=== PATIENT | male | born 1965 | race Caucasian/White ===

== ENCOUNTER → 2017-11-29 11:44 | Outpatient (CLI) | payer MEDICAID, SELFPAY ==
[2017-11-29 13:01] LABS: Free T4 (Free Thyroxine) 1.01 ng/dl (0.76-1.46); Thyroid Stimulating Hormone 1.15 uIU/ml (0.358-3.740)
[2017-12-02 02:52] LABS: Calcitonin 2.5 pg/mL (0.0-8.4)
== END ==
PROVIDERS: Family Provider Internal Medicine Adolescent Medicine; PCP Internal Medicine Adolescent Medicine; Visit Provider Otolaryngology
DX: Z80.8 Family history of malignant neoplasm of other organs or systems (principal)
CPT/HCPCS: 82308; 84439; 84443

== ENCOUNTER → 2017-12-05 10:47 | Outpatient (CLI) | payer MEDICAID, SELFPAY ==
--- NOTE | 2017-12-05 11:02 | US_ITS ---
US thyroid HISTORY: Dysphasia, feels like something is stuck in his throat ITS.REASON: FAMILY H/O THYROID CA ORDERING PHYSICIAN: Pete Valladares MD PATIENT AGE: 52 years COMPARISON: None FINDINGS: Right lobe: 4.5 x 1.4 x 2.9 cm 6 mm cyst in upper pole. 3 mm cyst in lower pole and an additional 3 mm cyst in lower pole Left lobe: 4.4 x 1.6 x 1.9 cm. 7 mm cyst upper pole 5 mm cyst lower pole Isthmus: Slightly prominent at 4 mm IMPRESSION: Mildly enlarged thyroid gland. Bilateral cystic lesions within the thyroid gland
== END ==
PROVIDERS: Family Provider Internal Medicine Adolescent Medicine; PCP Internal Medicine Adolescent Medicine; Visit Provider Otolaryngology
DX: Z80.8 Family history of malignant neoplasm of other organs or systems (principal)
CPT/HCPCS: 76536

== ENCOUNTER → 2017-12-21 08:43 | Outpatient (CLI) | payer MEDICAID, SELFPAY ==
--- NOTE | 2017-12-21 08:46 | FL_ITS ---
EXAM: Barium swallow/esophagram. INDICATION: ORDERING PHYSICIAN: Pete Valladares MD PATIENT AGE: 52 years COMPARISON: None TECHNIQUE: In the upright position the patient was observed to swallow barium in both the AP and lateral view. The cervical esophagus was examined under fluoroscopy with images obtained. The patient was then placed prone in the right anterior oblique position and was observed to swallow barium with Valsalva technique . FLUOROSCOPY TIME: 58 seconds FINDINGS: There was no evidence of aspiration. There was normal peristalsis. No filling defects or mucosal abnormalities. No masses or strictures. There is a small sliding hiatal hernia with a nonconstricting Schatzki's ring. Reflux was not demonstrated during exam. Esophagus is midline. IMPRESSION: Small sliding hiatal hernia with nonconstricting Schatzki's region
== END ==
PROVIDERS: Family Provider Internal Medicine Adolescent Medicine; PCP Internal Medicine Adolescent Medicine; Visit Provider Otolaryngology
DX: R13.10 Dysphagia, unspecified (principal)
CPT/HCPCS: 74220

== ENCOUNTER → 2018-01-10 14:57 | Outpatient (CLI) | payer MEDICAID, SELFPAY ==
--- NOTE | 2018-01-10 14:59 | CT_ITS ---
CT sinus wo con CLINICAL INDICATION: Chronic maxillary sinusitis, elongated uvula, acquired deviated nasal septum ITS.REASON: dysphagia ORDERING PHYSICIAN: Pete Valladares MD PATIENT AGE: 52 years COMPARISON: None TECHNIQUE:Axial, sagittal, and coronal images are generated and reviewed without contrast FINDINGS: Mild mucosal thickening involves the ethmoid sinuses. No sinus air-fluid level or sinus mass. The frontal sinuses are hypoplastic. There is severe narrowing of the left nasal canal secondary to leftward nasal septal deviation of the bony septum along with a prominent nasal septal spur which projects toward the left. The spur measures approximately 5 mm. The ostiomeatal complexes are patent. No mastoid effusion.. The orbits have an unremarkable appearance. IMPRESSION: 1. Severe narrowing of the left nasal canal secondary to leftward nasal septal deviation and a prominent septal spur 2. Otherwise negative CT of the paranasal sinuses
== END ==
PROVIDERS: Family Provider Internal Medicine Adolescent Medicine; PCP Internal Medicine Adolescent Medicine; Visit Provider Otolaryngology
DX: J32.0 Chronic maxillary sinusitis (principal); K13.79 Other lesions of oral mucosa; J34.2 Deviated nasal septum
CPT/HCPCS: 70486

== ENCOUNTER → 2018-01-25 11:55 | Outpatient (CLI) | payer MEDICAID, SELFPAY ==
[2018-01-25 12:13] LABS: Basophils % 0.3 % (0.1-2.0); Eosinophils # 0.2 K/mm3 (0.0-0.4); Hematocrit 41.5 % (42.0-52.0); Hemoglobin 13.9 g/dL (14.1-18.0); Lymphocytes # 2.5 K/mm3 (0.7-4.5); Lymphocytes % 32.4 K/mm3 (10-50); Mean Corpuscular HGB Conc 33.4 g/dL (31.8-35.4); Mean Corpuscular Hemoglobin 31.8 pg (27.0-31.2); Mean Corpuscular Volume 95.2 fl (80-94); Mean Platelet Volume 7.2 fl (7.4-10.4); Monocytes # 0.5 K/mm3 (0.1-1.0); Monocytes % 6.1 % (1.7-9.3); Neutrophils # 4.6 K/mm3 (1.8-7.8); Neutrophils % 59.2 % (37.0-80.0); Platelet Count 226 K/mm3 (142-424); Red Blood Count 4.36 M/mm3 (4.60-6.20); Red Cell Distribution Width 12.7 % (11.5-17.5); White Blood Count 7.8 K/mm3 (4.8-10.8)
[2018-01-25 12:26] LABS: Anion Gap 11.8 mEq/L (5-15); Blood Urea Nitrogen 15 mg/dL (7-18); Carbon Dioxide 29 mmol/L (21.0-32.0); Chloride 104 mmol/L (98-107); Creatinine,Serum 1.05 mg/dL (0.70-1.30); Estimated Glomerular Filt Rate 74 ml/min (>60); GFR (African American) 90 ML/MIN (>60); Glucose 87 mg/dL (74-106); Potassium 3.8 mmoL/L (3.5-5.1); Sodium 141 mmol/L (136-145)
== END ==
PROVIDERS: Visit Provider Otolaryngology
DX: Z01.818 Encounter for other preprocedural examination (principal)
CPT/HCPCS: 36415; 80048; 85025; 93005

== ENCOUNTER → 2018-01-31 06:49 | Outpatient (CLI) | payer MEDICAID, SELFPAY ==
--- NOTE | 2018-01-31 06:52 | NM_ITS ---
History and Indications: Hypertension, hyperlipidemia, family history, abnormal EKG. Procedure: Patient received a 0.4 mg of Lexiscan, resting heart rate was 65 bpm resting blood pressure 156/89, with Lexiscan maximum heart rate achieved was 81 bpm which is less than 85% of the maximum predicted heart rate and a blood pressure was 150/69. With Lexiscan patient complained of shortness of breath and headache. Electrocardiogram: Resting electrocardiogram showed sinus rhythm, with Lexiscan occasional premature ventricular complex seen, less than 1.[address] segment depression noted from the baseline EKG. The EKG portion of the Lexiscan Myoview is nondiagnostic. Cardiac stress and resting SPECT images: Cardiac stress and rest SPECT images were obtained using technetium 99 Myoview 10.9 mCi at rest and 32.3 mCi at stress, gated SPECT further analysis of segmental wall motion and calculation of the ejection fraction also done. Cardiac stress and rest SPECT images show decreased tracer activity in the inferior and posterobasal wall which improves on the resting images suggestive of reversible ischemia, computer derived ejection fraction is 43% with mild inferior wall hypokinesis, right ventricle is normal size and contractility. Conclusion: 1. The EKG portion of the Lexiscan Myoview is nondiagnostic. 2. Scintigraphic evidence of mild reversible ischemia involving the inferior and posterobasal wall, computer derived ejection fraction is 43% with segmental wall motion abnormality described above, right ventricle is normal size and contractility. 3. Abnormal Lexiscan Myoview study
--- NOTE | 2018-01-31 06:52 | CA_ITS ---
PROCEDURE: 2-D M-mode and color Doppler study INDICATIONS FOR THE TEST: Chest pain COPD Heart Murmur Tobacco Smoking Palpitations Fatigue Syncope Edema HypertensionXDiabetes Mellitus Rheumatic Fever SOBXDOE Obesity HyperlipidemiaX Family History HD Additional History H/O AAA PATIENT INFORMATION HEIGHT: 75 WEIGHT:261 GENDER: Male B/P:142/77 2-D/M-MODE INTERPRETATION: 2-D MEASUREMENTS OBSERVED VALUES IN CMS Right Ventricular Dimension (RVDd) 3.0 Interventricular Septum (Thickness)(IVsd) .9 Left Ventricular Internal Dimensions(LVIDd) 5.6 Left Ventricular Posterior Wall (Thickness)(LVPWd) 1.1 Aortic Root 3.5 Aortic Cusp Separation 1.8 Left Atrial Dimensions (LAD) 3.7 2D 1. Left atrium is qualitatively mildly enlarged, left ventricle is normal size, mild concentric left ventricular hypertrophy, visually estimated ejection fraction 55% with no obvious regional wall motion abnormality. 2. The right atrium is normal size, right ventricle is mildly enlarged with normal contractility. 3. The aortic valve is minimally thickened and fibrosed. 4. The mitral and tricuspid valve leaflets are minimally thickened. 5. The pulmonic valve is poorly visualized. 6. No significant pericardial effusion noted. DOPPLER INTERROGATION: Doppler interrogation of the aortic, mitral and tricuspid valvular presence of mild mitral and tricuspid regurgitation, tricuspid and jet velocity insufficient for calculation of the right ventricular systolic pressure, grade 1 diastolic dysfunction seen with tissue Doppler evidence of raised left atrial pressure. CONCLUSION: 1. Qualitatively mildly enlarged left atrium, normal left ventricular size, mild concentric left ventricular hypertrophy, visually estimated ejection fraction 55% with no obvious regional wall motion abnormality, grade 1 diastolic dysfunction seen with tissue Doppler evidence of raised left atrial pressure. 2. Mildly enlarged right ventricle with normal contractility. 3. Mild mitral and tricuspid regurgitation 4. No significant pericardial effusion noted.
--- NOTE | 2018-01-31 07:52 | HMH.ITSHM ---
AMLODIPINE VISOPROPOLOL ISOSORBIDE OMEPRAZOLE ASA PRAVASTATIN FOLIC ACID LOPIDOGRIL
== END ==
PROVIDERS: Family Provider Internal Medicine Adolescent Medicine; PCP Internal Medicine Adolescent Medicine; Visit Provider Internal Medicine
DX: Z82.49 Family history of ischemic heart disease and other diseases of the circulatory system (principal); Z01.818 Encounter for other preprocedural examination; I71.4 Abdominal aortic aneurysm, without rupture; I10 Essential (primary) hypertension; K21.9 Gastro-esophageal reflux disease without esophagitis; E78.4 Other hyperlipidemia; R06.00 Dyspnea, unspecified
CPT/HCPCS: 78452; 93017; 93306; A9502; J2785

== ENCOUNTER → 2018-10-28 06:07 | Outpatient (CLI) | payer MEDICAID, SELFPAY ==
--- NOTE | 2018-10-28 06:09 | NM_ITS ---
History and Indications: Coronary artery disease, hypertension, hyperlipidemia, family history, shortness of breath and fatigue Procedure: Patient received a 0.4 mg of intravenous Lexiscan, resting heart rate was 65 bpm, resting blood pressure 131/72, with intravenous Lexiscan maximum heart rate achieved was 78 bpm is less than 85% of the maximum predicted heart rate and a blood pressure was 114/64. With Lexiscan patient complained of nausea. Electrocardiogram: Resting electrocardiogram showed sinus rhythm nonspecific ST-T changes, with Lexiscan there is less than 1.[address] segment depression noted from the baseline EKG. The EKG portion of the Lexiscan Myoview is nondiagnostic. Cardiac stress and resting SPECT images: Cardiac stress and resting SPECT images were obtained using technetium 99 Myoview 30.8 mCi stress and 10.6 mCi at rest. Gated SPECT further analysis of segmental wall motion and calculation of the ejection fraction also done. Cardiac stress and resting SPECT images show decreased tracer activity in the inferior wall which improves on the resting images suggestive of reversible ischemia. Computer derived ejection fraction is 51% with no regional wall motion abnormality, right ventricle is normal size and contractility. Conclusion: 1. The EKG portion of the Lexiscan Myoview is nondiagnostic. 2. Scintigraphic evidence of mild reversible ischemia involving the inferior wall, there are ejection fraction is 51% with no regional wall motion abnormality, right ventricle is normal size and contractility. 3. Abnormal Lexiscan Myoview study.
--- NOTE | 2018-10-28 07:07 | HMH.ITSHM ---
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 []AMLODIPINE BISOPROLOL ISOSORBIDE OMEPRAZOLE ASA ATORVASTATIN FOLIC ACID CLOPIDOGREL MONTELUKAST VENLAFAXINE
== END ==
PROVIDERS: PCP Internal Medicine Adolescent Medicine; Visit Provider Internal Medicine
DX: I11.9 Hypertensive heart disease without heart failure (principal); R06.00 Dyspnea, unspecified; I25.10 Atherosclerotic heart disease of native coronary artery without angina pectoris
CPT/HCPCS: 78452; 93017; A9502; J2785

== ENCOUNTER → 2018-11-19 14:38 | Outpatient (CLI) | payer MEDICAID, SELFPAY | PROVIDERS: PCP Internal Medicine Adolescent Medicine; Visit Provider Internal Medicine | DX: R40.0 Somnolence (principal); I11.9 Hypertensive heart disease without heart failure; I25.10 Atherosclerotic heart disease of native coronary artery without angina pectoris; R06.00 Dyspnea, unspecified | CPT/HCPCS: 95806 ==

== ENCOUNTER → 2018-11-20 06:57 | Outpatient (CLI) | payer MEDICAID, SELFPAY ==
[2018-11-20 08:09] LABS: Alanine Aminotransferase 87 U/L (12-78); Albumin Level 3.7 gm/dL (3.4-5.0); Alkaline Phosphatase 82 U/L (46-116); Aspartate Amino Transferase 42 U/L (15-37); Bilirubin,Direct 0.2 mg/dL (0.0-0.2); Bilirubin,Indirect 0.4 mg/dL (0.0-0.9); Bilirubin,Total 0.6 mg/dL (0.2-1.0); Chol/HDL Ratio 5.8 (1-3.5); Cholesterol 146 mg/dL (140-200); HDL Cholesterol 25 mg/dL (27-67); LDL Cholesterol 63 mg/dL (0-130); Total Protein,Serum 7.3 gm/dL (6.4-8.2); Triglycerides 289 mg/dL (30-200); VLDL Cholesterol 58 mg/dL (0-40)
== END ==
PROVIDERS: Visit Provider Internal Medicine
DX: I71.4 Abdominal aortic aneurysm, without rupture (principal); R06.00 Dyspnea, unspecified; E78.5 Hyperlipidemia, unspecified; I10 Essential (primary) hypertension; I25.10 Atherosclerotic heart disease of native coronary artery without angina pectoris; R09.89 Other specified symptoms and signs involving the circulatory and respiratory systems
CPT/HCPCS: 36415; 80061; 80076

== ENCOUNTER → 2018-12-20 07:33 | Outpatient (CLI) | payer MEDICAID, SELFPAY ==
--- NOTE | 2018-12-20 07:34 | CI_ITS ---
Cerebrovascular Exam Indications: 785.9 Bruit. 433.10 Occlusion/stenosis of carotid artery without cerebral infarction. IMPRESSIONS 1. The bilateral vertebral arteries are patent with normal antegrade flow. 2. Study suggests 50-69%(upper end of scale)stenosis involving the right internal carotid artery. 3. Study suggests 20-49%(upper end of scale)stenosis involving the left internal carotid artery. History: Coronary artery disease. Risk factors: Hypertension. Hyperlipidemia. Carotid duplex study. Complete study and Doppler flow study including spectral analysis, color and roberson scale imaging. Height: Height: 190.5cm. Height: 75in. Weight: Weight: 125.2kg. Weight: 275.4lb. Body mass index: BMI: 34.5kg/m^2. Body surface area: BSA: 2.61m^2. Location: Vascular laboratory. Patient status: Outpatient. Tables: Arterial flow: + +--------+--------+ Location V sys V ed + +--------+--------+ Right CCA - proximal 76.2cm/s 18.9cm/s + +--------+--------+ Right CCA - distal 77cm/s 14.9cm/s + +--------+--------+ Right ECA 86.4cm/s -------- + +--------+--------+ Right ICA - proximal 173cm/s 53.4cm/s + +--------+--------+ Right ICA - mid 209cm/s 63.8cm/s + +--------+--------+ Right ICA - distal 78.6cm/s 22.6cm/s + +--------+--------+ Right vertebral 18.9cm/s -------- + +--------+--------+ Left CCA - proximal 96.4cm/s 16.1cm/s + +--------+--------+ Left CCA - distal 70.5cm/s 21cm/s + +--------+--------+ Left ECA 83.8cm/s -------- + +--------+--------+ Left ICA - proximal 110cm/s 27.9cm/s + +--------+--------+ Left ICA - mid 116cm/s 34.9cm/s + +--------+--------+ Left ICA - distal 88.5cm/s 25.5cm/s + +--------+--------+ Left vertebral 66.3cm/s -------- + +--------+--------+ Velocity ratios: + + + + + + Right, V sys Right, V ed Left, V sys Left, V ed + + + + + + Max ICA/dist CCA 2.71 4.28 1.65 1.66 + + + + + + (Report amended ) Electronically signed by: Alexis Lopez [id number]
== END ==
PROVIDERS: PCP Internal Medicine Adolescent Medicine; Visit Provider Internal Medicine
DX: R09.89 Other specified symptoms and signs involving the circulatory and respiratory systems (principal); I71.4 Abdominal aortic aneurysm, without rupture; R06.00 Dyspnea, unspecified; I25.10 Atherosclerotic heart disease of native coronary artery without angina pectoris; E78.5 Hyperlipidemia, unspecified; I10 Essential (primary) hypertension
CPT/HCPCS: 93880

== ENCOUNTER → 2019-02-06 10:40 | Outpatient (CLI) | payer MEDICAID, SELFPAY | PROVIDERS: PCP Internal Medicine Adolescent Medicine; Visit Provider Specialist | DX: G47.33 Obstructive sleep apnea (adult) (pediatric) (principal) | CPT/HCPCS: 94762 ==

== ENCOUNTER → 2019-02-26 20:27 | Outpatient (CLI) | payer MEDICAID, SELFPAY | PROVIDERS: PCP Internal Medicine Adolescent Medicine; Visit Provider Specialist | DX: G47.33 Obstructive sleep apnea (adult) (pediatric) (principal) | CPT/HCPCS: 95811 ==

== ENCOUNTER → 2019-11-21 14:06 | Outpatient (CLI) | payer BC, SELFPAY ==
--- NOTE | 2019-11-21 14:07 | CA_ITS ---
APPROVED REPORT Dive Supervisor: Minnie Garcia RVT Laterality: Bilateral Study Quality: Good Indications: Carotid stenosis Risk Factors Hypertension: Smoking Doppler Spectral Velocity Analysis ECA (R) 100.80/10.90 cm/s ECA (L) 105.40/11.00 cm/s dICA (R) 66.40/15.20 cm/s dICA (L) 122.30/32.40 cm/s Rachel (R) 175.40/34.00 cm/s Rachel (L) 118.90/28.30 cm/s pICA (R) 227.50/55.50 cm/s pICA (L) 131.40/26.60 cm/s dCCA (R) 79.00/14.10 cm/s dCCA (L) 61.60/14.10 cm/s pCCA (R) 89.30/12.80 cm/s pCCA (L) 121.80/20.70 cm/s Vert (R) 40.20/10.90 cm/s Vert (L) 33.00/11.00 cm/s ICA/CCA 2.88 ICA/CCA 2.13 Findings Study suggests 50-69% stenosis(upper end of scale) of the right internal cartoid artery unchanged from the 12/20/18 study. Study suggests 20-49% stenosis (upper end of scale) of the left internal cartoid artery unchanged from the 12/20/18 study. Antegrade flow seen bilateral vertebral arteries. Conclusion Study suggests 50-69% stenosis(upper end of scale) of the right internal cartoid artery unchanged from the 12/20/18 study. Study suggests 20-49% stenosis (upper end of scale) of the left internal cartoid artery unchanged from the 12/20/18 study. Antegrade flow seen bilateral vertebral arteries. Electronically signed by : Jeff Rivas, 11/21/2019 15:35:19
== END ==
PROVIDERS: PCP Internal Medicine Adolescent Medicine; Visit Provider Nurse Practitioner Family
DX: I65.23 Occlusion and stenosis of bilateral carotid arteries (principal)
CPT/HCPCS: 93880

== ENCOUNTER → 2019-12-06 07:55 | Outpatient (CLI) | payer BC, SELFPAY ==
[2019-12-06 08:20] LABS: Basophils % 0.4 % (0.1-2.0); Eosinophils # 0.2 K/mm3 (0.0-0.4); Hematocrit 43.5 % (42.0-52.0); Hemoglobin 14.1 g/dL (14.1-18.0); Lymphocytes # 2.4 K/mm3 (0.7-4.5); Lymphocytes % 31.5 % (10-50); Mean Corpuscular HGB Conc 32.4 g/dL (31.8-35.4); Mean Corpuscular Hemoglobin 31.5 pg (27.0-31.2); Mean Corpuscular Volume 97.1 fl (80-94); Mean Platelet Volume 7.2 fl (7.4-10.4); Monocytes # 0.5 K/mm3 (0.1-1.0); Monocytes % 7.2 % (1.7-9.3); Neutrophils # 4.3 K/mm3 (1.8-7.8); Neutrophils % 57.9 % (37.0-80.0); Platelet Count 281 K/mm3 (142-424); Red Blood Count 4.48 M/mm3 (4.60-6.20); White Blood Count 7.5 K/mm3 (4.8-10.8)
[2019-12-06 10:30] LABS: Alanine Aminotransferase 78 U/L (12-78); Albumin Level 3.7 gm/dL (3.4-5.0); Albumin/Globulin Ratio 1.2 (1.1-1.8); Alkaline Phosphatase 63 U/L (46-116); Anion Gap 13.9 mEq/L (5-15); Aspartate Amino Transferase 52 U/L (15-37); Bilirubin,Total 0.4 mg/dL (0.2-1.0); Blood Urea Nitrogen 19 mg/dL (7-18); Calcium 8.7 mg/dL (8.5-10.1); Carbon Dioxide 29 mmol/L (21.0-32.0); Chloride 108 mmol/L (98-107); Cholesterol 136 mg/dL (140-200); Creatinine,Serum 1.16 mg/dL (0.70-1.30); Estimated Glomerular Filt Rate 66 ml/min (>60); GFR (African American) 80 ML/MIN (>60); Glucose 107 mg/dL (74-106); HDL Cholesterol 27 mg/dL (27-67); LDL Cholesterol 79 mg/dL (0-130); Potassium 3.9 mmoL/L (3.5-5.1); Sodium 147 mmol/L (136-145); Total Protein,Serum 6.7 gm/dL (6.4-8.2); Triglycerides 151 mg/dL (30-200); VLDL Cholesterol 30 mg/dL (0-40)
== END ==
PROVIDERS: Visit Provider Internal Medicine Adolescent Medicine
DX: I25.10 Atherosclerotic heart disease of native coronary artery without angina pectoris (principal); K21.9 Gastro-esophageal reflux disease without esophagitis
CPT/HCPCS: 36415; 80053; 80061; 85025

== ENCOUNTER → 2020-06-25 15:22 | Outpatient (CLI) | payer BC, SELFPAY ==
--- NOTE | 2020-06-25 15:34 | CT_ITS ---
PROCEDURE: CT ABDOMEN PELVIS WO/W CON CLINICAL INDICATION: H/O AAA,GASTROINTESTINAL HEMORRHAGE Blood in stool, history of abdominal aortic aneurysm COMPARISON: CT CTAC CTA-CHEST from 09/23/2017 TECHNIQUE: IV Contrast: 75ML OPTIRAY 350 Oral Contrast None Axial images obtained with sagittal and coronal reformats. All CT scans at the facility use one or more dose reduction, viz: automated exposure control, ma/kV adjustment per patient size (including targeted exams where dose is matched to indication, i.e. head), or iterative reconstruction technique. FINDINGS: LOWER THORAX: No acute finding ABDOMEN & PELVIS: There is diffuse fatty liver infiltration. 8 mm hypodensity is present in the left hepatic lobe segment 2. The the gallbladder, spleen adrenal glands, pancreas, and kidneys have an unremarkable appearance. No intestinal obstruction or free air. There is a small umbilical hernia which contains. No evidence of appendicitis or diverticulitis. There has been prior aortoiliac stent graft placed. There is also a stent within superior mesenteric artery and there are bilateral renal artery stents there is dilatation of the [place] abdominal aorta measuring 4.7 cm in AP dimension and 4.1 cm transverse. No evidence endo graft leak however, the study is not performed as the CT angiogram. No evidence of acute retroperitoneal hemorrhage. No acute bony anomalies. IMPRESSION: 1. No acute abdominal or pelvic findings. 2. Prior aortoiliac stent graft placement. Dictated by: Alexis Lopez MD 06/26/2020 07:29 Alexis Lopez MD in [place] 06/26/2020 07:29
[2020-06-25 15:39] LABS: Basophils % 0.4 % (0.1-2.0); Eosinophils # 0.3 K/mm3 (0.0-0.4); Eosinophils % 3.4 % (0.1-12.0); Hematocrit 38.3 % (42.0-52.0); Hemoglobin 13.8 g/dL (14.1-18.0); Lymphocytes # 2.9 K/mm3 (0.7-4.5); Lymphocytes % 33.2 % (10-50); Mean Corpuscular Hemoglobin 34.2 pg (27.0-31.2); Mean Corpuscular Volume 94.9 fl (80-94); Mean Platelet Volume 7.6 fl (7.4-10.4); Monocytes # 0.6 K/mm3 (0.1-1.0); Monocytes % 6.7 % (1.7-9.3); Neutrophils # 4.9 K/mm3 (1.8-7.8); Neutrophils % 56.4 % (37.0-80.0); Platelet Count 217 K/mm3 (142-424); Red Blood Count 4.03 M/mm3 (4.60-6.20); Red Cell Distribution Width 13.3 % (11.5-17.5); White Blood Count 8.6 K/mm3 (4.8-10.8)
[2020-06-25 15:50] LABS: INR 1.02 (0.9-1.1); Prothrombin Time 10.5 seconds (9.4-11.8)
[2020-06-25 16:29] LABS: Alanine Aminotransferase 74 U/L (12-78); Albumin Level 4.2 g/dl (3.5-5.0); Albumin/Globulin Ratio 1.6 (1.1-1.8); Alkaline Phosphatase 63 U/L (38-126); Anion Gap 14.7 mEq/L (5-15); Aspartate Amino Transferase 62 U/L (17-59); Bilirubin,Total 0.4 mg/dl (0.2-1.3); Blood Urea Nitrogen 17 mg/dl (9-20); Calcium 9.3 mg/dl (8.4-10.2); Carbon Dioxide 27 mmol/L (22.0-30.0); Chloride 102 mmol/L (98-107); Estimated Glomerular Filt Rate 78 ml/min (>60); GFR (African American) 94 ML/MIN (>60); Globulin 2.7 g/dL (1.3-3.2); Glucose 81 mg/dl (74-100); Potassium 3.7 mmoL/L (3.5-5.1); Sodium 140 mmol/L (136-145); Total Protein,Serum 6.9 g/dl (6.3-8.2)
== END ==
PROVIDERS: Visit Provider Internal Medicine Adolescent Medicine
DX: K92.2 Gastrointestinal hemorrhage, unspecified (principal); Z86.79 Personal history of other diseases of the circulatory system
CPT/HCPCS: 36415; 74178; 80053; 85025; 85610; Q9967

== ENCOUNTER → 2020-07-09 11:04 | Outpatient (CLI) | payer BC, SELFPAY ==
--- NOTE | 2020-07-09 11:10 | CA_ITS ---
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: HOME Laterality: Bilateral Study Quality: Good Indications: carotid bruit Doppler Spectral Velocity Analysis dICA (R) 102.30/26.80 cm/s dICA (L) 94.10/19.20 cm/s Rachel (R) 219.30/63.40 cm/s Rachel (L) 116.50/22.40 cm/s pICA (R) 143.00/39.70 cm/s pICA (L) 111.60/25.10 cm/s dCCA (R) 132.80/21.00 cm/s dCCA (L) 76.60/17.80 cm/s pCCA (R) 368.20/90.60 cm/s pCCA (L) 93.00/15.70 cm/s Vert (R) 22.90/2.50 cm/s Vert (L) 37.70/9.30 cm/s ICA/CCA 1.70 ICA/CCA 1.50 Findings Duplex evaluation demonstrates stenosis of the right proximal internal carotid artery in the range of 50-69%(UPPER END OF SCALE) with PSV =140 cm/sec, EDV <100 cm/sec, and IC/CC Ratio <4.0.Duplex evaluation demonstrates stenosis of the left proximal internal carotid artery in the range of 20-49%(UPPER END OF SCALE) with PSV <140 cm/sec, EDV <100 cm/sec, and IC/CC Ratio <4.0.Antegrade flow seen bilateral vertebral arteries.No significant change from study 11/21/19 Conclusion Duplex evaluation demonstrates stenosis of the right proximal internal carotid artery in the range of 50-69%(UPPER END OF SCALE) with PSV =140 cm/sec, EDV <100 cm/sec, and IC/CC Ratio <4.0.Duplex evaluation demonstrates stenosis of the left proximal internal carotid artery in the range of 20-49%(UPPER END OF SCALE) with PSV <140 cm/sec, EDV <100 cm/sec, and IC/CC Ratio <4.0.Antegrade flow seen bilateral vertebral arteries.No significant change from study 11/21/19 Electronically signed by : Alexis Lopez MD 07/09/2020 15:13:42
== END ==
PROVIDERS: PCP Internal Medicine Adolescent Medicine; Visit Provider Internal Medicine Cardiovascular Disease
DX: I65.23 Occlusion and stenosis of bilateral carotid arteries (principal); E78.5 Hyperlipidemia, unspecified; I10 Essential (primary) hypertension; I25.10 Atherosclerotic heart disease of native coronary artery without angina pectoris; I71.4 Abdominal aortic aneurysm, without rupture
CPT/HCPCS: 93880

== ENCOUNTER → 2020-07-12 15:24 | Outpatient (CLI) | payer BC, SELFPAY ==
[2020-07-12 17:20] LABS: Coronavirus 19 IgG Antibody Negative (Negative); Coronavirus 19 IgM Antibody Negative (Negative)
== END ==
PROVIDERS: Visit Provider Surgery
DX: Z01.818 Encounter for other preprocedural examination (principal); Z12.11 Encounter for screening for malignant neoplasm of colon
CPT/HCPCS: 36415; 86328

== ENCOUNTER 2020-07-13 08:20 | Day surgery (SDC) | payer BC, SELFPAY ==
[2020-07-12 10:31] VITALS: BMI 36.6
[2020-07-13 08:34] VITALS: BP 161/84; PULSE 61; RESP 18; TEMP 36.4; O2SAT 99
--- NOTE | 2020-07-13 09:55 | HMH.ANESCL ---
[facility] Anesthesia Checklist - Patient Identification Patient Identification: Arm Band, Verbal (Name & ) - Structural Data Admitted From: Home Planned Operative Procedure/s: Colonoscopy Consent for Planned Operative Procedure(s) Verified: Yes Verified Documents: Surgical Consent, History and Physical - NPO Status Verified Time NPO: 00:00 - Chart Verification Results Verified: CBC, BMP, PT, PTT, INR - Additional verifications Anesthesia Reactions: No - Airway Assessment C-Spine Mobility Assessed: Yes TMJ Mobility Assessed: Yes Dentition: Good Dentition - Neurological Assessment Level of Consciousness: Awake, Alert, Appropriate, Follows Commands Hx Seizures: No Numbness or tingling in extremities: No - Anesthesia Plan Anesthesia Risk discussed: Yes Anesthesia Plan: Verified ASA Class: III Anesthesia Type: MAC [facility] History I have reviewed the patient's past medical history: Yes Medical History: Reports:: Aneurysm (AAA repaired endovascularly), Coronary Artery Disease, Gastroesophageal Reflux Disease(GERD), Hyperlipidemia, Hypertension Denies:: Cancer, Diabetes Mellitus Type 1, Diabetes Mellitus Type 2, Internal Pacemaker, MRSA, Seizures *Have you ever received a pneumonia vaccine?: No *Have you received a flu vaccine this season?: No Comment:: Obesity, angina Anesthesia experience/problems:: No prior complications Other Surgeries: Yes: Cardiac Catheterization, Colonoscopy, Coronary Stent, Hernia Repair. No: Pacemaker Amputation: No Fractures: No - *Social History Last grade of school completed: GED Smoking Status: Never smoker Tobacco Type: cigarettes Alcohol Intake: current Alcohol Intake Frequency:: 0-2 drinks per day Substance Use Type: denies use *Occupational Status:: employed Housing: house Household Members: spouse *Travel in the last 8 weeks: Inside the [facility] Family Hx:: No significant family history
[2020-07-13 10:02] VITALS: O2SAT 99
[2020-07-13 10:50] VITALS: BP 102/55; PULSE 59; RESP 16; TEMP 36.5; O2SAT 90
--- NOTE | 2020-07-13 10:50 | HMH.SCOPE ---
- Procedure: Date: 07/13/20 Patient Date of :: 1965 Procedure Performed:: Total colonoscopy to terminal ileum with polypectomy by snare and biopsy forceps Indications:: Patient is a 55-year-old male who resides in [place] referred by Dr. Piero Garcia for colonoscopy. Patient does state that he had a history of rectal bleeding in 2010 and underwent colonoscopy at that time but it was unremarkable. He did have a CT scan at that time as well which revealed apparently abdominal aortic aneurysm which has been repaired by endograft. Recently he has been passing appreciable blood per rectum according to him. It is not daily but occurs sporadically and when it does occur it is appreciable. He has no pain. He did undergo CT scan. Of note, patient is on Plavix due to his history of endovascular stenting. He also does see cardiology at this institution. Performing Provider:: Mook Denny MD Referring Provider:: Piero Garcia MD Sedation:: MAC sedation Procedure:: Patient was taken to endoscopy procedure room. He was positioned in a lateral decubitus position. Adequate intravenous sedation was achieved with anesthesia titration of propofol which did require an appreciable amount of propofol before achievement of adequate anesthesia. Variable stiffness Olympus colonoscope was then inserted via the anus. It was advanced to the cecum with some minor difficulty due to redundancy and floppiness of the sigmoid colon. Ileocecal valve and appendiceal orifice were clearly identified. Colonoscope was advanced a short distance into the terminal ileum which appeared grossly normal. Colonoscope was slowly withdrawn through the colon with careful surveillance. In the proximal transverse colon there was a sessile polyp measuring 8 to 10 mm removed with cold cutting snare. In the distal sigmoid colon there were a couple of hyperplastic appearing polyps removed with cold biopsy forceps. Hyperplastic appearing rectosigmoid polyp was biopsied with cold biopsy forceps. Retroflexion revealed minor internal hemorrhoids. Colonoscope was withdrawn. Please note that there were some rare sigmoid diverticuli noted. Findings:: Proximal transverse colon polyp, 8 to 10 mm, removed with cold cutting snare Hyperplastic distal sigmoid polyps x2 removed with cold biopsy forceps Rectosigmoid hyperplastic appearing polyp removed with cold biopsy forceps Rare sigmoid diverticuli Minor internal hemorrhoids Recommendations:: Bleeding may have been from diverticuli or hemorrhoids. Would advocate repeat colonoscopy 2 to 3 years pending the pathology of the proximal transverse colon polyp. Complications:: None immediately apparent Estimated blood obtained (mL): 2
[2020-07-13 11:00] VITALS: BP 112/63; PULSE 57; RESP 18; TEMP 36.5; O2SAT 93
[2020-07-13 11:10] VITALS: BP 139/68; PULSE 55; RESP 18; TEMP 36.5; O2SAT 93
[2020-07-13 11:22] VITALS: BP 168/84; PULSE 56; RESP 18; TEMP 36.5; O2SAT 93
== END 2020-07-13 11:22 | disposition home or self-care (01) ==
LOC: OUTP 08:22
PROVIDERS: PCP Internal Medicine Adolescent Medicine; Visit Provider Surgery
PROC: 0DJD8ZZ Inspection of Lower Intestinal Tract, Via Natural or Artificial Opening Endoscopic (ICD-10-PCS; CPT 45385; principal; 2020-07-13 09:30)
DX: Z12.11 Encounter for screening for malignant neoplasm of colon (principal); K64.9 Unspecified hemorrhoids; Z87.19 Personal history of other diseases of the digestive system; K63.5 Polyp of colon; K57.30 Diverticulosis of large intestine without perforation or abscess without bleeding; Z79.01 Long term (current) use of anticoagulants; I25.10 Atherosclerotic heart disease of native coronary artery without angina pectoris; E78.5 Hyperlipidemia, unspecified; I10 Essential (primary) hypertension; K21.9 Gastro-esophageal reflux disease without esophagitis; Z86.79 Personal history of other diseases of the circulatory system; Z88.1 Allergy status to other antibiotic agents
CPT/HCPCS: 45385; 45380

== ENCOUNTER 2020-10-09 16:24 | Emergency (ER) | payer BC, SELFPAY ==
[2020-10-09 16:35] VITALS: BP 152/81; PULSE 70; RESP 18; TEMP 36.8; O2SAT 97; BMI 37.5
--- NOTE | 2020-10-09 16:41 | HMH.EDUTC ---
[facility] Disposition Clinical Impression: Encounter for laboratory testing for COVID-19 virus Sinusitis Qualifiers: Sinusitis location: unspecified location Chronicity: unspecified Qualified Code(s): J32.9 - Chronic sinusitis, unspecified Disposition: Home, Self-Care Condition on Discharge: Good Instructions: Sinusitis, DI for Sinusitis, Doxycycline, Preventing the Spread of Coronavirus Discharge Instructions Additional Instructions: *Monitor Temp, Over the counter Motrin or Tylenol as directed/as needed Tylenol every 4 hours and Motrin every 6 hours (as long as your family doctor has told you that you can take it) for fever or pain. and straight to ER if unable to lower temp less than 101.0 after medication given *Warm salt water gargles may help to soothe the throat *Throat Lozenges *Warm fluids like tea with honey may help to soothe the throat *Sleep elevated *Humidifier/Vaporizer Follow up IMMEDIATELY for new or worsening symptoms or no Noticeable improvement over the next 48-72 hours. 911 for difficulty breathing or swallowing You were tested for today for COVID19 your test result should be back in the next 24-48 hours, you may call to the [facility] to see if your test results are back in the next 48 hours [phone] [facility] hours are 9am-9pm You was given a handout with instructions for Self Quarantine and Self isolation for while you wait on test results and what to do if they are positive If you are positive the Health Dept will be contacting you also Prescriptions: Doxycycline Monohydrate [Doxycycline [place] 100mg Tab] 100 mg PO BID 7 Days #14 tab Transmission Status: Pending to [facility] Ondansetron [Zofran 4mg ODT] 4 mg PO TIDP PRN #12 tab PRN Reason: Nausea Transmission Status: Pending to [facility] Referrals: Piero Garcia MD [Primary Care Provider] - As needed Forms: Work/School Release Time of Disposition: 16:55 Medical Decision Making - Jose Manuel Inquiry Pt receiving controlled substance: No Jose Manuel was queried for this patient: No Vital Signs: 10/09/20 16:35 Temperature 98.3 F Temperature Source Oral Pulse Rate [Radial] 70 Respiratory Rate 18 Blood Pressure [Right Arm] 152/81 H Blood Pressure Mean [Right Arm] 104 Blood Pressure Source [Right Arm] Automatic Cuff Blood Pressure Position [Right Arm] Sitting 02 Sat by Pulse Oximetry 97 Oxygen Delivery Method Room Air - Lab Data Lab results reviewed: Yes: I reviewed the patient's lab results. Orders (Tests/Meds): ORDERS Category Date Time Status Covid-19 Nasal PCR Sendout [facility] 10/09/20 16:37 Ordered [facility] HPI - General Stated complaint: fever,symptoms Time Seen by Provider: 10/09/20 16:41 Mode of Arrival: Ambulatory Source of Information: Patient Limitations: No Limitations Description of Symptoms (Recalled from Triage Doc. by RN): body aches, fever, COLEMAN, SOB, since this morning HEENT Symptoms (Recalled from RN notes): Yes Resp Symptoms (Recalled from RN notes): No Skin Symptoms (Recalled from RN notes): No MS Symptoms (Recalled from RN notes): No Functional Status (Recalled from RN notes): wnl - History of Present Illness Provider Complaint: Patient states that he was recently around a coworker that has since tested positive for COVID State that since he has started to have fever, chills, body aches, sinus pain and congestion and feeling sick at his stomach State that he had a fever earlier at home so he come in to get checked for flu and covid - Related Data Home Medications Medication Instructions Recorded Confirmed folic acid 400 mcg tablet 0.4 mg PO DAILY 10/07/18 07/12/20 venlafaxine 75 mg capsule,extended 75 mg PO DAILY 30 Days #30 cap 11/18/19 07/12/20 release 24 hr Amlodipine Besylate [Amlodipine 10 mg PO DAILY 07/12/20 07/12/20 10mg Tab] Aspirin [Children's Aspirin] 81 mg PO DAILY 07/12/20 07/12/20 Atorvastatin Calcium [Lipitor 80mg 80 mg PO DAILY 07/12/20
[2020-10-09 16:55] LABS: UTC Influenza A Antigen Negative (Negative); UTC Influenza B Antigen Negative (Negative)
[2020-10-09 17:02] VITALS: BP 152/81; PULSE 70; RESP 18; TEMP 36.8; O2SAT 97
[2020-10-11 09:45] LABS: Covid-19 Nasal PCR Sendout UK Not Detected
== END 2020-10-09 17:02 | disposition home or self-care (01) ==
PROVIDERS: Emergency Provider Nurse Practitioner; PCP Internal Medicine Adolescent Medicine
DX: Z20.828 Contact with and (suspected) exposure to other viral communicable diseases (principal); J32.9 Chronic sinusitis, unspecified; E78.5 Hyperlipidemia, unspecified; I10 Essential (primary) hypertension; I25.10 Atherosclerotic heart disease of native coronary artery without angina pectoris; K21.9 Gastro-esophageal reflux disease without esophagitis; Z88.1 Allergy status to other antibiotic agents; Z79.899 Other long term (current) drug therapy
CPT/HCPCS: 87804; 99201; U0003

== ENCOUNTER → 2020-11-26 13:34 | Outpatient (CLI) | payer BC, SELFPAY ==
--- NOTE | 2020-11-26 13:42 | MR_ITS ---
PROCEDURE: MR LUMBAR SPINE WO CON CLINICAL INDICATION: LBP WITH NO KNOWN INJURY LOW BACK PAIN GOING DOWN RIGHT LEG X4 WEEKS. NO INJURY/SURGERY. IMPLANT IN AORTA CAUSED ARTIFACT. COMPARISON: CT CT ABDOMEN PELVIS WO/W CON from 06/25/2020 TECHNIQUE: Standard multiplanar multiecho sequences are performed without contrast. 3-D MIP and myelographic images are also rendered and reviewed FINDINGS: Extensive artifact present from aortoiliac stent graft. The artifact obscures adequate visualization of the lumbar spine. There are few levels which are adequately imaged including L1-L2 L2-L3 and L3-L4. Artifact at T12-L1 L4-5 and L5-S1 obscures adequate evaluation at these levels. L1-L2: Unremarkable. L2-L3: Mild facet and ligamentum hypertrophy. L3-L4: Mild concentric bulging disc with facet ligamentum hypertrophy. There is facet and ligamentum hypertrophy at L4-5 and L5-S1 but the disc space is not adequately evaluated due to artifact. IMPRESSION: Extensive artifact from the aortoiliac stent graft. There is inadequate evaluation of multiple levels due to the artifact. There is mild facet ligamentum hypertrophy at L2-L3 and L3-L4 with mild bulging disc at L3-L4. CT of the lumbar spine may provide further evaluation Dictated by: Alexis Lopez MD 11/27/2020 07:46 Alexis Lopez MD in [facility] 11/27/2020 07:46
== END ==
PROVIDERS: PCP Internal Medicine Adolescent Medicine; Visit Provider Internal Medicine Adolescent Medicine
DX: M54.41 Lumbago with sciatica, right side (principal); R29.898 Other symptoms and signs involving the musculoskeletal system; R20.0 Anesthesia of skin
CPT/HCPCS: 72148; 76376

== ENCOUNTER → 2020-12-06 14:04 | Outpatient (CLI) | payer BC, SELFPAY ==
--- NOTE | 2020-12-06 14:09 | CT_ITS ---
PROCEDURE: CT LUMBAR SPINE WO CON CLINICAL HISTORY: SADDLE ANESTHESIA, PAIN IN RT HIP, PAIN IN LT HIP Lower back pain [id number]. Numbness and tingling down right leg. COMPARISON: No exams were available for comparison TECHNIQUE: Axial images obtained with sagittal and coronal reformats. All CT scans at the facility use one or more dose reduction, viz: automated exposure control, ma/kV adjustment per patient size (including targeted exams where dose is matched to indication, i.e. head), or iterative reconstruction technique. FINDINGS: There is normal alignment. No fracture or dislocation is evident. No lytic or blastic change. T11-T12: Unremarkable. T12-L1: Unremarkable. L1-L2: Mild degenerative disc disease with mild bulging disc slightly eccentric toward the left. L2-L3: Mild degenerative disc disease with mild bulging disc which is slightly eccentric toward the left. There is minimal retrolisthesis of L2 by 3 mm. There is mild right foraminal narrowing and moderate left foraminal narrowing. L3-L4: Degenerate disc disease with minimal endplate hypertrophic change and 2-3 mm retrolisthesis of L3. Bulging disc is present along with facet and ligamentum hypertrophy with moderate bilateral foraminal narrowing. L4-5: Concentric bulging disc along with facet and ligamentum hypertrophy. Facet hypertrophic changes are greater on the left. There is bilateral lateral recess narrowing and moderate bilateral foraminal narrowing. L5-S1: Mild degenerative disc disease with bulging disc eccentric toward the left. There is endplate ridging which is eccentric toward the left with severe left-sided foraminal narrowing and moderate right foraminal narrowing. There has been a prior aortoiliac stent graft placed with dilatation of the anvik aorta. The anterior aspect of the aorta is not included on the images. IMPRESSION: Multilevel lumbar spondylosis with degenerative disc disease, bulging disc, facet and ligamentum hypertrophy with lateral recess and foraminal narrowing. Please see above for detailed description at each level. Dictated by: Alexis Lopez MD 12/07/2020 10:42 Alexis Lopez MD in [facility] 12/07/2020 10:42
== END ==
PROVIDERS: PCP Internal Medicine Adolescent Medicine; Visit Provider Nurse Practitioner Family
DX: M25.552 Pain in left hip (principal); M25.551 Pain in right hip; M54.41 Lumbago with sciatica, right side; R20.0 Anesthesia of skin
CPT/HCPCS: 72131

== ENCOUNTER 2020-12-20 13:47 | Outpatient (RCR) | payer BC, SELFPAY | END 2021-01-17 13:50 | disposition home or self-care (01) | LOC: PT 13:47 | PROVIDERS: PCP Internal Medicine Adolescent Medicine; Visit Provider Nurse Practitioner Family | DX: M25.551 Pain in right hip (principal); M25.552 Pain in left hip; M54.32 Sciatica, left side; M54.41 Lumbago with sciatica, right side | CPT/HCPCS: 97110; 97163 ==

== ENCOUNTER → 2021-01-25 11:23 | Outpatient (CLI) | payer BC, SELFPAY ==
--- NOTE | 2021-01-25 | CA_ITS ---
APPROVED REPORT Exam: Pharmacologic Technologist: Bre Melendez Ht: 6 ft 3 in Wt: 299 lbs BSA: 2.60 m2 HR: 60 bpm BP: 135/68 mmHg Indications: Shortness of Air, SANTY, Chest pain Medical History Medications: Amlodipine,,,,, Omeprazole,,,,, Isosorbide,,,,, Aspirin,,,,, Losartan,,,,, Atorvastatin,,,,, Flonase,,,,, FOLIC ACID,,,,, Montelukast,,,,, CloPIdogrel,,,,, Venlafaxine,,,,, BisOPROLOL-HCTZ,,,,, Stress Test Details Test: LEXISCAN HR Resting HR: 65 bpm Max Heart Rate (APMHR): 166.055383 bpm Max HR Achieved: 77 bpm Target HR (85% APMHR): 141.079666 bpm % of APMHR: 46.39 Recovery HR: 72 bpm BP Resting BP: 135.0/68.0 mmHg Max BP: 137.0/67.0 mmHg Recovery BP: 130.0/70.0 mmHg ECG Resting ECG: Normal sinus rhythm Clinical Exercise duration: 04:00 min Highest Stage Achieved: Exercise capacity: 1.0 METs Stress ECG Conclusion Symptoms: Shortness of air, headache, malaise. No chest pain Arrhythmias/Ectopy: Occasional PVC ST-T Changes: No significant changes. Conclusion: Unremarkable Lexiscan stress. Myoview images reported separately. Electronically signed by : Gregory Cruz, 01/25/2021 17:19:52
--- NOTE | 2021-01-25 11:23 | NM_ITS ---
APPROVED REPORT Exam: Nuclear Stress Test Indication: Chest pain, SOB, Fatigue, CAD, HTN, High cholesterol, Family history Patient Location: Outpatient Stress Tech: Bre Melendez NM Tech:Yolanda Fragoso, ARRT, RT (R)(N) Ht: 6 ft 3 in Wt: 299 lbs HR: 60 bpm BP: 135/68 mmHg BSA: 2.60 m2 BMI: 37.3 History: Chest pain, SOB, Fatigue, CAD, HTN, High cholesterol, Family history Procedure: Patient received a 0.4 mg of intravenous Lexiscan, resting heart rate 60 bpm, resting blood pressure 135/68 mmHg, with Lexiscan maximum heart rate achived was 72 bpm which is Less than 85 % of the maximum predicted heart rate and blood pressure was 135/67 mmHg. With Lexiscan, patient denied any complaint of chest pain. Electrocardiogram Resting electrocardiogram showed sinus rhythm, with Lexiscan there is less than 1.[address] segment depression noted from the baseline EKG. The EKG portion of the Lexiscan is nondiagnostic. Cardiac Stress and Resting SPECT Images: Cardiac Stress and Resting SPECT images were obtained using technetium 99m Myoview 32.1 mCi stress and 10.02 mCi at rest. Gated SPECT for analysis of segmental wall motion and calculation of the ejection fraction also done. Prone images were also obtained. Cardiac stress and resting SPECT images show small area of reversible ischemia involving the apex, computer derived ejection fraction 53% with no regional wall motion abnormality, right ventricle is normal size and contractility. Conclusion: 1. The EKG portion of the Lexiscan is nondiagnostic. 2. Scintigraphic evidence of mild reversible ischemia involving the apex, computer derived ejection fraction is 53% with no regional wall motion abnormality, right ventricle is normal size and contractility. 3. Abnormal Lexiscan Myoview study. Electronically signed by : Gregory Cruz, 01/25/2021 17:28:32
--- NOTE | 2021-01-25 11:40 | CA_ITS ---
APPROVED REPORT Custodial Supervisor: SURJIT Laterality: Bilateral Study Quality: Technically Difficult, Due to body habitus. Indications: chest pain, dyspnea Risk Factors Hypertension: Hyperlipidemia Doppler Spectral Velocity Analysis ECA (R) 127.10/15.40 cm/s ECA (L) 81.40/12.90 cm/s dICA (R) 90.50/17.20 cm/s dICA (L) 71.90/18.00 cm/s Rachel (R) 71.10/11.20 cm/s Rachel (L) 110.50/29.10 cm/s pICA (R) 83.80/8.20 cm/s pICA (L) 111.40/28.30 cm/s dCCA (R) 86.50/12.90 cm/s dCCA (L) 74.50/17.10 cm/s pCCA (R) 137.90/21.40 cm/s pCCA (L) 92.50/20.60 cm/s Vert (R) 36.70/9.70 cm/s Vert (L) 59.10/16.30 cm/s ICA/CCA 1.06 ICA/CCA 1.50 Findings Atheromatous noncalcified plaque is noted in bilateral ICA, worse in the distal left ICA, causes approximately 50% stenosis. Duplex evaluation demonstrates stenosis of the right proximal internal carotid artery in the range of 20-49% with PSV <140 cm/sec, EDV <100 cm/sec, and IC/CC Ratio <4.0.Duplex evaluation demonstrates stenosis of the left proximal internal carotid artery in the range of 20-49% with PSV <140 cm/sec, EDV <100 cm/sec, and IC/CC Ratio <4.0. Duplex evaluation demonstrates antegrade flow of the bilateral Vertebral Arteries. Conclusion Approximately 50% plaque stenosis in the left distal ICA. Duplex evaluation demonstrates stenosis of the right proximal internal carotid artery in the range of 20-49% with PSV <140 cm/sec, EDV <100 cm/sec, and IC/CC Ratio <4.0.Duplex evaluation demonstrates stenosis of the left proximal internal carotid artery in the range of 20-49% with PSV <140 cm/sec, EDV <100 cm/sec, and IC/CC Ratio <4.0. Duplex evaluation demonstrates antegrade flow of the bilateral Vertebral Arteries. Electronically signed by : Tracy Nicole, 01/26/2021 16:01:05
--- NOTE | 2021-01-25 11:40 | CA_ITS ---
APPROVED REPORT EXAM: Comprehensive 2D, Doppler, and color-flow Echocardiogram Business Operations Manager: Farhana Andrade RT(R) Ht: 6 ft 3 in Wt: 299lbs BSA: 2.60 BP: 134/82 mmHg Indications: SOA, SANTY, hyperlipidemia 2D Dimensions LVOT 2.13 cm (M/F) 1.5-2.5 LVEF (Hart's) 49.50 % M: 52 - 72 LV Volume 129.60 mL M: 62 - 150 LV Volume Index 49.84 mL/m2 M: 34 - 74 M-Mode Dimensions RVDd 3.26 cm (0.9-2.6) LA Diam 4.04 cm (1.9-4.0) LVDd 4.96 cm (3.5-5.7) Ao Diam 3.09 cm (2.0-3.7) LVDs 3.67 cm (3.5-5.7) IVSd 1.39 cm (0.6-1.1) PWd 0.98 cm (0.6-1.1) EF (Teich) 50.90% FS 26.00% EDV (Teich) 116.10 mL ESV (Teich) 57.00 mL LV Diastology E Decel Time 253.00 (160-240 msec) E/A Ratio 0.9 MED E' 6.00 (< 7 cm/sec) E'/MED E' Ratio 12.18 (>14) LAT E' 8.10 (<10 cm/sec) E/LAT E' Ratio 9.02 (>14) Mitral Valve MV E Max Atif. 73.00 (40-130 cm/s) MV A Velocity 85.00 (40-130 cm/s) E/A Ratio 0.86 MV Decel. Time 253.00 (160-240 ms) MV PHT 74.00 ms Left Ventricle Left atrium is mildly enlarged, left ventricle is normal size, mild concentric left ventricular hypertrophy, visually estimated ejection fraction 55% with no regional wall motion abnormality, grade 1 diastolic dysfunction seen without tissue Doppler evidence of raise left atrial pressure. Right Ventricle Right atrium and right ventricle are normal size and contractility. Aortic Valve Aortic valve is minimally thickened and fibrosed, there is no aortic stenosis or aortic insufficiency. Mitral Valve Mitral valve is grossly normal, there is trace mitral regurgitation. Tricuspid Valve Tricuspid grossly normal, there is trace tricuspid regurgitation, tricuspid regurgitation jet velocity is inadequate for calculation of the right ventricular systolic pressure. Pulmonic Valve Pulmonic valve is poorly visualized. Great Vessels Aortic root is normal size. Pericardium No significant pericardial effusion noted. Conclusion 1. Mildly enlarged left atrium, normal left ventricular size, mild concentric left ventricular hypertrophy, visually estimated ejection fraction 55% with no regional wall motion abnormality, grade 1 diastolic dysfunction seen without tissue Doppler evidence of raise left atrial pressure. 2. Trace mitral and tricuspid regurgitation. 3. No significant pericardial effusion noted. Electronically signed by : Gregory Cruz, 01/25/2021 16:16:46
--- NOTE | 2021-01-25 12:36 | HMH.ITSHM ---
Current Home Medications as stated by this patient Jose Wilder JR or special service representative. []VENLAFAXINE POTASSIUM MONTELUKAST FUROSEMIDE FOLIC ACID OMEPRAZOLE LOSARTAN ISOSORBIDE FLONASE CLOPIDOGREL BISOPROLOL ATORVASTATIN ASA AMLODIPINE
== END ==
PROVIDERS: PCP Internal Medicine Adolescent Medicine; Visit Provider Physician Assistant
DX: R07.9 Chest pain, unspecified (principal); R06.09 Other forms of dyspnea; R01.1 Cardiac murmur, unspecified; I25.10 Atherosclerotic heart disease of native coronary artery without angina pectoris; E78.2 Mixed hyperlipidemia; I10 Essential (primary) hypertension; I65.23 Occlusion and stenosis of bilateral carotid arteries; I71.4 Abdominal aortic aneurysm, without rupture; I73.9 Peripheral vascular disease, unspecified; K21.9 Gastro-esophageal reflux disease without esophagitis
CPT/HCPCS: 78452; 93017; 93306; 93880; A9502; J2785

== ENCOUNTER → 2021-01-31 10:31 | Outpatient (CLI) | payer BC, SELFPAY ==
[2021-01-31 16:23] LABS: Basophils % 0.5 % (0.1-2.0); Eosinophils # 0.2 K/mm3 (0.0-0.4); Eosinophils % 2.3 % (0.1-12.0); Hematocrit 39.5 % (42.0-52.0); Hemoglobin 13.2 g/dL (14.1-18.0); Lymphocytes # 2.6 K/mm3 (0.7-4.5); Lymphocytes % 31.7 % (10-50); Mean Corpuscular HGB Conc 33.4 g/dL (31.8-35.4); Mean Corpuscular Hemoglobin 32.2 pg (27.0-31.2); Mean Corpuscular Volume 96.4 fl (80-94); Mean Platelet Volume 7.9 fl (7.4-10.4); Monocytes # 0.6 K/mm3 (0.1-1.0); Monocytes % 7.8 % (1.7-9.3); Neutrophils # 4.7 K/mm3 (1.8-7.8); Neutrophils % 57.7 % (37.0-80.0); Platelet Count 237 K/mm3 (142-424); Red Cell Distribution Width 13.8 % (11.5-17.5); White Blood Count 8.1 K/mm3 (4.8-10.8)
[2021-01-31 17:27] LABS: Chloride 106 mmol/L (98-107); Sodium 140 mmol/L (136-145)
[2021-01-31 17:28] LABS: Potassium 3.7 mmoL/L (3.5-5.1)
[2021-01-31 17:31] LABS: Anion Gap 10.7 mEq/L (5-15); Blood Urea Nitrogen 18 mg/dl (9-20); Calcium 9.3 mg/dl (8.4-10.2); Carbon Dioxide 27 mmol/L (22.0-30.0); Estimated Glomerular Filt Rate 78 ml/min (>60); GFR (African American) 94 ML/MIN (>60); Glucose 94 mg/dl (74-100)
[2021-01-31 17:44] LABS: Troponin I 0.04 ng/ml (0.00-0.034)
== END ==
PROVIDERS: PCP Internal Medicine Adolescent Medicine; Visit Provider Physician Assistant
DX: Z01.818 Encounter for other preprocedural examination (principal); Z20.822 Contact with and (suspected) exposure to COVID-19; R06.09 Other forms of dyspnea; I20.8 Other forms of angina pectoris; I10 Essential (primary) hypertension; E78.2 Mixed hyperlipidemia; K21.9 Gastro-esophageal reflux disease without esophagitis
CPT/HCPCS: 36415; 80048; 84484; 85025; U0003

== ENCOUNTER 2021-02-01 08:49 | Day surgery (SDC) | payer BC, SELFPAY ==
[2021-02-01] VITALS (12 sets, daily range): BP systolic 106–157; BP diastolic 62–76; PULSE 59–63; RESP 17–20; TEMP 36.6; O2SAT 88–99; BMI 37.1
--- NOTE | 2021-02-01 | IR_ITS ---
APPROVED REPORT Patient Location: Outpatient [place] [facility] Attendant: QUINTIN Brooks RT (R) PROCEDURES Left heart catheterization Left ventriculogram Selective coronary angiogram INDICATION Progressive angina pectoris, Known multivessel coronary disease Informed consent was obtained prior to the procedure. COMPLICATIONS None Estimated Blood Loss: Less than 10 mls TECHNIQUE One percent lidocaine used to anesthetize the right anterior aspect of the wrist. The right radial artery was accessed via the Seldinger technique. A 6 Polish sheath was placed in the right radial artery. 2.5 mg of verapamil, 800 mcg of nitroglycerin, 1mg Lidocaine and 5000 U Heparin were given through the arterial sheath. The trap catheter and a 6 Polish JL 3 guide catheter were also used to perform left heart catheterization, left ventriculogram and selective coronary angiogram. At the end of the procedure the sheath was removed good hemostasis was achieved using Traclet band, patient was transferred to the postop holding area in stable condition. ANGIOGRAPHIC RESULTS The left main artery Has an ostial 10 to 20% stenosis in the distal 20 to 30% stenosis The left anterior descending artery Has a stent in the proximal segment is widely patent free of in-stent restenosis with excellent proximal distal transitioning. The remaining LAD has mild disease with 10 to 20% stenoses The circumflex artery Is a nondominant vessel and has a proximal concentric 30 to 40% stenosis. The first obtuse marginal artery has additional 20 to 30% mid vessel stenoses. The right coronary artery Dominant and proximally occluded. The distal vessel fills nicely via [id number] collaterals The GARNETT ventriculogram reveals Preserved at 55% The left ventricular end-diastolic pressure Elevated at 25 mmHg IMPRESSION Coronary disease as described above Preserved ejection fraction Elevated LVEDP which likely accounts for patient's angina/dyspnea PLAN 1. Medical management for diastolic dysfunction 2. Standard therapy for ischemic heart disease 3. Maximize antianginals 4. Diuresis would improve patient's symptoms Electronically signed by : Aurelio Riddle, 02/01/2021 11:08:28
== END 2021-02-01 14:00 | disposition home or self-care (01) ==
LOC: CATHLAB 08:49
PROVIDERS: PCP Internal Medicine Adolescent Medicine; Visit Provider Internal Medicine
DX: I25.118 Atherosclerotic heart disease of native coronary artery with other forms of angina pectoris (principal); Z95.5 Presence of coronary angioplasty implant and graft; Z88.1 Allergy status to other antibiotic agents; Z88.0 Allergy status to penicillin; Z88.8 Allergy status to other drugs, medicaments and biological substances; R94.39 Abnormal result of other cardiovascular function study; K21.9 Gastro-esophageal reflux disease without esophagitis; I10 Essential (primary) hypertension; I71.4 Abdominal aortic aneurysm, without rupture; I65.23 Occlusion and stenosis of bilateral carotid arteries; Z79.01 Long term (current) use of anticoagulants; Z79.899 Other long term (current) drug therapy
CPT/HCPCS: 93458; 99152; C1725; C1760; C1769; J1644; Q9967

== ENCOUNTER → 2021-02-15 11:35 | Outpatient (CLI) | payer BC, SELFPAY ==
[2021-02-15 12:08] LABS: Chloride 101 mmol/L (98-107)
[2021-02-15 12:09] LABS: Sodium 141 mmol/L (136-145)
[2021-02-15 12:12] LABS: Blood Urea Nitrogen 16 mg/dl (9-20); Calcium 9.5 mg/dl (8.4-10.2); Carbon Dioxide 30 mmol/L (22.0-30.0); Estimated Glomerular Filt Rate 88 ml/min (>60); GFR (African American) 106 ML/MIN (>60); Glucose 96 mg/dl (74-100)
== END ==
PROVIDERS: Visit Provider Nurse Practitioner Family
DX: I10 Essential (primary) hypertension (principal); R06.00 Dyspnea, unspecified; E78.5 Hyperlipidemia, unspecified; I25.10 Atherosclerotic heart disease of native coronary artery without angina pectoris; I65.29 Occlusion and stenosis of unspecified carotid artery; I71.4 Abdominal aortic aneurysm, without rupture; I73.9 Peripheral vascular disease, unspecified; K21.9 Gastro-esophageal reflux disease without esophagitis; R01.1 Cardiac murmur, unspecified
CPT/HCPCS: 36415; 80048

== ENCOUNTER → 2021-03-23 13:40 | Outpatient (CLI) | payer BC, SELFPAY ==
--- NOTE | 2021-03-23 13:44 | CT_ITS ---
PROCEDURE: CT CHEST W CON CLINCAL INDICATION: LUNG NODULE Lung nodule apex dyspnea COMPARISON: CT NECKW CT SOFT TISSUE NECK W/CONTRAST from 09/23/2017 CT CTAC CTA-CHEST from 09/23/2017 TECHNIQUE: IV Contrast: 75ml Isovue 370 Axial images obtained with sagittal and coronal reformats. All CT scans at the facility use one or more dose reduction, viz: automated exposure control, ma/kV adjustment per patient size (including targeted exams where dose is matched to indication, i.e. head), or iterative reconstruction technique. FINDINGS: HEART AND MEDIASTINAL STRUCTURES: There are few small stable appearing mediastinal lymph nodes. No mediastinal or hilar mass or adenopathy. There is extensive coronary artery calcification and/or stents noted LUNGS AND PLEURAL SPACES: 5 mm right apical nodule is once again noted unchanged. Minimal atelectatic change present in the right lower lobe laterally. No new nodules evident. No lobar consolidation or collapse. Calcified granuloma is present in the left upper lobe. BONY STRUCTURES: No acute bony abnormalities apparent. UPPER ABDOMEN: 8 mm hypodensity is present in the left hepatic lobe segment 4 a probably unchanged from the older study. There is an aortic stent graft present in the upper aorta employed just superior to the origin of the celiac artery. The inferior extent of the stent graft is not included on this exam ADDITIONAL FINDINGS: No other significant abnormalities. IMPRESSION: Stable right upper lobe nodule. Faint opacity right lower lobe laterally which could be due to a small area of atelectasis or fibrosis versus early patchy infiltrate. Dictated by: Alexis Lopez MD 03/24/2021 08:38 Alexis Lopez MD in [facility] 03/24/2021 08:38
[2021-03-23 14:16] LABS: Blood Urea Nitrogen 20 mg/dl (9-20); Estimated Glomerular Filt Rate 78 ml/min (>60); GFR (African American) 94 ML/MIN (>60)
== END ==
PROVIDERS: PCP Internal Medicine Adolescent Medicine; Visit Provider Nurse Practitioner Family
DX: R06.00 Dyspnea, unspecified (principal); R91.1 Solitary pulmonary nodule
CPT/HCPCS: 36415; 71260; 82565; 84520; 94060; 94726; 94729; Q9967

== ENCOUNTER → 2021-09-09 14:24 | Outpatient (CLI) | payer BC, SELFPAY ==
--- NOTE | 2021-09-09 14:26 | MR_ITS ---
PROCEDURE INFORMATION: Exam: MR Lumbar Spine Without Contrast Exam date and time: 09/09/2021 2:26 PM Age: 56 years old Clinical indication: Low back pain; Additional info: Sciatica, right side. Lbp with RT leg numbness xyrs. No recent injury. Artifact is from implant. Prior MR 11-26-20 TECHNIQUE: Imaging protocol: Multiplanar magnetic resonance images of the lumbar spine without intravenous contrast. COMPARISON: CT LUMBAR SPINE WO CON 12/06/2020 2:23 PM FINDINGS: alignment is grossly normal. signal intensity within the bone marrow is normal. conus terminates at the mid aspect of L1. Soft tissues are unremarkable. Metallic blooming artifact obscures much of the lumbar spine particularly the L5 L1 and T12 vertebral bodies. Review of the CT scan dated 12-06-20 demonstrates an aortoiliac stent graft. No marrow edema T12-L1: Central canal and neural foramina are widely patent. L1-L2: Central canal and neural foramina are widely patent. L2-L3: Broad-based annular disc bulge effaces the anterior aspect of the thecal sac mildly so. Disc lateralizes to the right and left. Mild facet hypertrophic changes and mild ligamentum flavum hypertrophic changes. Central canal is normal L3-L4: Mild narrowing of the central canal secondary to facet hypertrophic changes, ligamentum flavum hypertrophic changes, and a broad-based annular bulge. L4-L5: Mild narrowing of the central canal secondary to facet hypertrophic changes, ligamentum flavum hypertrophic changes, and a broad-based annular bulge. L5-S1: Central canal and neural foramina are widely patent. IMPRESSION: Metallic blooming artifact obscures much of the lumbar spine particularly the L5 L1 and T12 vertebral bodies. Review of the CT scan dated 12-06-20 demonstrates an aortoiliac stent graft. See above. Mild narrowing the central canal L3-L4 and L4-L5
--- NOTE | 2021-09-09 15:21 | XR_ITS ---
PROCEDURE: XR RIBS RT 2V CLINICAL INDICATION: CHEST WALL PAIN COMPARISON: No exams were available for comparison FINDINGS: All the right ribs 1 through 12 are visualized and appear intact. The right costophrenic angle is sharp and there is no pneumothorax. IMPRESSION: Negative right ribs 1 through 12 Dictated by: Dr. Tha Villanueva MD 09/09/2021 16:13 Dr. Tha Villanueva MD in [facility] 09/09/2021 16:13
--- NOTE | 2021-09-09 15:21 | XR_ITS ---
PROCEDURE: XR CHEST 2V CLINICAL HISTORY: CHEST WALL PAIN COMPARISON: CR CXR1 CHEST-PORTABLE from 04/07/2015 CR CXR CHEST(2 VIEWS-NOT PORTABLE) from 09/22/[address] CHEST W CON from 03/23/2021 FINDINGS: The cardiomediastinal silhouette and pulmonary vascularity are within normal limits. The lungs are clear without infiltrates, suspicious nodules, or pleural effusions. No acute bony abnormalities. IMPRESSION: No acute findings. Dictated by: Dr. Tha Villanueva MD 09/09/2021 16:12 Dr. Tha Villanueva MD in [facility] 09/09/2021 16:12
== END ==
PROVIDERS: PCP Internal Medicine Adolescent Medicine; Visit Provider Internal Medicine Adolescent Medicine
DX: R07.89 Other chest pain (principal); M54.31 Sciatica, right side
CPT/HCPCS: 71046; 71100; 72148; 76376

== ENCOUNTER → 2021-10-06 14:20 | Outpatient (POV) | payer BC, SELFPAY ==
[2021-10-06 15:10] VITALS: BP 165/68; PULSE 75; RESP 18; O2SAT 97; BMI 38.1
--- NOTE | 2021-10-06 15:19 | HMH.PMCON ---
Assessment and Plan (1) Ligamentum flavum hypertrophy Status: Acute Category: Medical Code(s): M24.28 - Disorder of ligament, vertebrae (2) Facet arthritis of lumbar region Status: Acute Category: Medical Code(s): M47.816 - Spondylosis without myelopathy or radiculopathy, lumbar region - Assessment and plan all Dx Assessment and Plan for all problems:: Ordering Physician: Piero Garcia MD Date of Service: 09/09/21 Procedure(s): MR lumbar spine wo con Accession Number(s): [id number] cc: Piero Garcia MD; Lam Thomas MD~ PROCEDURE INFORMATION: Exam: MR Lumbar Spine Without Contrast Exam date and time: 09/09/2021 2:26 PM Age: 56 years old Clinical indication: Low back pain; Additional info: Sciatica, right side. Lbp with RT leg numbness xyrs. No recent injury. Artifact is from implant. Prior MR 11-26-20 TECHNIQUE: Imaging protocol: Multiplanar magnetic resonance images of the lumbar spine without intravenous contrast. COMPARISON: CT LUMBAR SPINE WO CON 12/06/2020 2:23 PM FINDINGS: alignment is grossly normal. signal intensity within the bone marrow is normal. conus terminates at the mid aspect of L1. Soft tissues are unremarkable. Metallic blooming artifact obscures much of the lumbar spine particularly the L5 L1 and T12 vertebral bodies. Review of the CT scan dated 12-06-20 demonstrates an aortoiliac stent graft. No marrow edema T12-L1: Central canal and neural foramina are widely patent. L1-L2: Central canal and neural foramina are widely patent. L2-L3: Broad-based annular disc bulge effaces the anterior aspect of the thecal sac mildly so. Disc lateralizes to the right and left. Mild facet hypertrophic changes and mild ligamentum flavum hypertrophic changes. Central canal is normal L3-L4: Mild narrowing of the central canal secondary to facet hypertrophic changes, ligamentum flavum hypertrophic changes, and a broad-based annular bulge. L4-L5: Mild narrowing of the central canal secondary to facet hypertrophic changes, ligamentum flavum hypertrophic changes, and a broad-based annular bulge. L5-S1: Central canal and neural foramina are widely patent. IMPRESSION: Metallic blooming artifact obscures much of the lumbar spine particularly the L5 L1 and T12 vertebral bodies. Review of the CT scan dated 12-06-20 demonstrates an aortoiliac stent graft. See above. Mild narrowing the central canal L3-L4 and L4-L5 Per the MRI, patient has ligamentum flavum hypertrophy. Patient's symptoms correlates with spinal stenosis. We would like to schedule the patient for a lumbar epidural steroid injection with epidurogram at the level of L3-L4, L4-L5. Patient is currently not on any blood thinners. Risks and benefits of the procedure have been explained to the patient. Patient would like to proceed with the procedure. If patient gets significant relief from this, we will consider the patient for a minimally invasive lumbar compression vs vertiflex. Patient has been instructed to contact the clinic with any concerns before the next appointment. Dr. Araya has reviewed this note and agrees with this plan of care. This note was dictated using voice recognition software and make contain errors or omissions. HPI - Data of Consult Patient: new to practice Consult date: 10/06/21 Requesting Physician: Dr. Garcia - Consult Narrative Reason for consult: low back pain History of present illness: Mr. Wilder is a 56 year old male who presents today as a new patient. Patient is referred by Dr. Piero Garcia for worsening low back pain. Patient states that he has had chronic low back pain for greater than 10 years. However, in the last 6 months he has been having worsening low back pain that radiates to his right hip, leg, foot. He's is also having worsening numbness and paresthesia to his right si
== END ==
PROVIDERS: Visit Provider Clinical Nurse Specialist Family Health
DX: M24.28 Disorder of ligament, vertebrae (principal); M47.816 Spondylosis without myelopathy or radiculopathy, lumbar region
CPT/HCPCS: 99202; G0463

== ENCOUNTER 2021-11-02 12:27 | Day surgery (SDC) | payer BC, SELFPAY ==
[2021-11-02 12:41] VITALS: BP 153/80; PULSE 63; RESP 18; TEMP 36.3; O2SAT 96; BMI 37.5
[2021-11-02 12:58] VITALS: PULSE 59; RESP 18; O2SAT 95
[2021-11-02 12:59] VITALS: PULSE 58; RESP 18; O2SAT 95
--- NOTE | 2021-11-02 13:11 | HMH.PMPROC ---
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 He has a lot of pain in his back and down his legs while walking and standing. We will do a lumbar epidural steroid injection with epidurogram today. This will be to assess candidacy for minimally invasive lumbar decompression and see if this helps with his pain symptoms. Procedure Details:: Informed consent was obtained and the risk and benefits of the procedure was explained to the patient. The patient was taken to the procedure room. The patient was placed prone on the procedure table. The patient was prepped and draped in sterile fashion. C-arm fluoroscopy was used to view the lumbar spine. Skin and subcutaneous tissues were anesthetized using lidocaine. I placed an 18-gauge epidural needle and advanced into the L4-L5 interspace using fluoroscopic guidance and [id number] to air. After confirmation of needle placement in the epidural space with dye I injected 2 mL of lidocaine 1.5% with Depo-Medrol 80 mg. Patient tolerated the procedure well with no complications. Plan and Disposition:: Based on epidurogram he does have significant stenosis at L3-L4 and L4-L5. I do believe he would be a good candidate for minimally invasive lumbar decompression bilateral L3-4 and L4-L5. We will schedule this when approved.
[2021-11-02 13:15] VITALS: BP 159/76; PULSE 62; RESP 20; O2SAT 95
== END 2021-11-02 13:15 | disposition home or self-care (01) ==
LOC: SC.PAINP 12:28
PROVIDERS: PCP Internal Medicine Adolescent Medicine; Visit Provider Anesthesiology
DX: M51.36 Other intervertebral disc degeneration, lumbar region (principal); M48.062 Spinal stenosis, lumbar region with neurogenic claudication; I25.10 Atherosclerotic heart disease of native coronary artery without angina pectoris; E78.5 Hyperlipidemia, unspecified; I10 Essential (primary) hypertension; K21.9 Gastro-esophageal reflux disease without esophagitis; I25.2 Old myocardial infarction; M19.90 Unspecified osteoarthritis, unspecified site; Z88.1 Allergy status to other antibiotic agents; Z88.8 Allergy status to other drugs, medicaments and biological substances
CPT/HCPCS: 62323; J1040; Q9966

== ENCOUNTER → 2021-11-21 15:29 | Outpatient (CLI) | payer BC, SELFPAY | PROVIDERS: Visit Provider Nurse Practitioner | DX: U07.1 COVID-19 (principal) | CPT/HCPCS: C9803; U0003; U0005 ==

== ENCOUNTER 2022-01-08 19:13 | Emergency (ER) | payer BC, SELFPAY ==
[2022-01-08 19:25] VITALS: BP 135/73; PULSE 82; RESP 18; TEMP 36.9; O2SAT 98; BMI 26.2
--- NOTE | 2022-01-08 19:32 | CT_ITS ---
PROCEDURE INFORMATION: Exam: CT Abdomen And Pelvis With Contrast Exam date and time: 01/08/2022 7:32 PM Age: 56 years old Clinical indication: Abdominal pain; Generalized; Prior surgery; Surgery date: 6+ months; Surgery type: Aneurysm repair 2016; Patient HX: Low abdomen/groin pain. ; Additional info: Abd pain, acute onset TECHNIQUE: Imaging protocol: Computed tomography of the abdomen and pelvis with contrast. Radiation optimization: All CT scans at this facility use at least one of these dose optimization techniques: automated exposure control; mA and/or kV adjustment per patient size (includes targeted exams where dose is matched to clinical indication); or iterative reconstruction. Contrast material: ISOVUE; Contrast volume: 75 ml; Contrast route: IV; COMPARISON: CT ABDOMEN PELVIS WO/W CON 06/25/2020 5:46 PM FINDINGS: Lungs: No mass/infiltrate at either lung base. No pleural effusion. Liver: The liver appears enlarged. There is no evidence of intra hepatic mass. No evidence of intrahepatic biliary dilatation. Gallbladder and bile ducts: Normal. No calcified stones. No ductal dilation. Gallbladder wall thickness is normal. Pancreas: Normal. No ductal dilation. Spleen: The spleen is mildly enlarged. There is no evidence of intra splenic mass. Adrenal glands: Normal. No mass. Kidneys and ureters: Normal. No hydronephrosis. Stomach and bowel: There is mild diverticulosis within portions of the left colon without evidence of diverticulitis. No obstruction. No mucosal thickening. Small bowel mesentery is normal. Appendix: Unremarkable. Intraperitoneal space: Unremarkable. No free air. No significant fluid collection. Vasculature: There is a 4.8 cm [place] abdominal aortic aneurysm. Contained within the aneurysm is an endovascular stent. The stent begins at the level of the celiac artery. It extends into the iliac arteries. Within the right iliac region it terminates at the bifurcation of the common iliac artery into internal and external iliacs. On the left it continues into the proximal left external iliac artery. There are stents within both renal arteries and within the superior mesenteric artery. Visceral and iliac arteries are patent. Lymph nodes: Unremarkable. No enlarged lymph nodes. Urinary bladder: Unremarkable as visualized. Reproductive: Unremarkable as visualized. Bones/joints: There are degenerative changes within the thoracic and lumbar spine. No acute fracture. Soft tissues: There is a small right inguinal hernia that contains fat. IMPRESSION: 1. No evidence of acute process within the abdomen or pelvis. 2. Stable 4.8 cm [place] abdominal aortic aneurysm, status post endovascular stent placement. There stents noted within the superior mesenteric and renal arteries. Bilateral iliac artery stents are noted. 3. Hepatosplenomegaly. 4. Small right inguinal hernia that contains fat.
[2022-01-08 19:47] LABS: Basophils # 0.1 K/mm3 (0-0.2); Basophils % 0.6 % (0.1-2.0); Eosinophils # 0.1 K/mm3 (0.0-0.4); Eosinophils % 0.8 % (0.1-12.0); Hematocrit 43.5 % (42.0-52.0); Hemoglobin 14.6 g/dL (14.1-18.0); Lymphocytes # 2.6 K/mm3 (0.7-4.5); Lymphocytes % 17.9 % (10-50); Mean Corpuscular HGB Conc 33.5 g/dL (31.8-35.4); Mean Corpuscular Hemoglobin 33.6 pg (27.0-31.2); Mean Corpuscular Volume 100.3 fl (80-94); Mean Platelet Volume 7.7 fl (7.4-10.4); Monocytes # 0.8 K/mm3 (0.1-1.0); Monocytes % 5.4 % (1.7-9.3); Neutrophils # 10.7 K/mm3 (1.8-7.8); Neutrophils % 75.3 % (37.0-80.0); Platelet Count 245 K/mm3 (142-424); Red Blood Count 4.33 M/mm3 (4.60-6.20); Red Cell Distribution Width 13.6 % (11.5-17.5); White Blood Count 14.2 K/mm3 (4.8-10.8)
[2022-01-08 19:51] LABS: Chloride 98 mmol/L (98-107)
[2022-01-08 19:52] LABS: Potassium 3.6 mmoL/L (3.5-5.1); Sodium 136 mmol/L (136-145)
[2022-01-08 19:54] LABS: Amylase 58 U/L (30-110); Blood Urea Nitrogen 16 mg/dl (9-20); Creatinine Clearance Estimated 112 mL/min (50-200); Estimated Glomerular Filt Rate 78 ml/min (>60); GFR (African American) 94 ML/MIN (>60)
[2022-01-08 19:55] LABS: Alanine Aminotransferase 80 U/L (12-78); Albumin Level 4.5 g/dl (3.5-5.0); Alkaline Phosphatase 73 U/L (38-126); Anion Gap 11.6 mEq/L (5-15); Aspartate Amino Transferase 70 U/L (17-59); Bilirubin,Direct 0.4 mg/dl (0.0-0.4); Bilirubin,Indirect 0.6 mg/dL (0.0-0.9); Bilirubin,Unconjugated 0.7 mg/dL (0.0-1.1); Calcium 8.4 mg/dl (8.4-10.2); Carbon Dioxide 30 mmol/L (22.0-30.0); Glucose 101 mg/dl (74-100); Lipase 55 U/L (23-300); Total Protein,Serum 7.6 g/dl (6.3-8.2)
[2022-01-08 19:56] LABS: Lactic Acid 1.6 mmol/L (0.7-2.1)
--- NOTE | 2022-01-08 21:22 | HMH.EDNVD ---
ED Disposition Clinical Impression: Abdominal pain Qualifiers: Abdominal location: right lower quadrant Qualified Code(s): R10.31 - Right lower quadrant pain Disposition: Home, Self-Care Condition on Discharge: Good Instructions: DI for Acute Abdominal Pain Additional Instructions: call pcp in am Referrals: Piero Garcia MD [Primary Care Provider] - - Critical Care Critical Care Time: No Attestation: On 01/08/22, the high probability of a clinically significant, sudden or life threatening deterioration of the following system(s) required my full and direct attention, intervention and personal management. The time I documented below is in addition to time spent performing reported procedures but includes the following listed in this critical care notation. Medical Decision Making - Medical Records Medical records reviewed: Yes: I reviewed the patient's medical records. - Jose Manuel Inquiry Pt receiving controlled substance: No Vital Signs: 01/08/22 19:25 Temperature 98.5 F Temperature Source Oral Pulse Rate [Right Brachial] 82 Respiratory Rate 18 Blood Pressure [Right Arm] 135/73 Blood Pressure Mean [Right Arm] 93 Blood Pressure Source [Right Arm] Automatic Cuff Blood Pressure Position [Right Arm] Sitting 02 Sat by Pulse Oximetry 98 Oxygen Delivery Method Room Air - Lab Data Lab results reviewed: Yes: I reviewed the patient's lab results. Lab Results 01/08/22 19:39: WBC 14.2 H, RBC 4.33 L, Hgb 14.6, Hct 43.5, MCV 100.3 H, MCH 33.6 H, MCHC 33.5, RDW 13.6, Plt Count 245, MPV 7.7, Neut % (Auto) 75.3, Lymph % (Auto) 17.9, [place] % (Auto) 5.4, Eos % (Auto) 0.8, Baso % (Auto) 0.6, Neut # (Auto) 10.7 H, Lymph # (Auto) 2.6, [place] # (Auto) 0.8, Eos # (Auto) 0.1, Baso # (Auto) 0.1 01/08/22 19:39: Sodium 136, Potassium 3.6, Chloride 98, Carbon Dioxide 30, Anion Gap 11.6, BUN 16, Creatinine 1.00, Estimated Creat Clear 112, Estimated GFR 78, Est GFR ( Amer) 94, Glucose 101 H, Calcium 8.4, Total Bilirubin 1.0, Direct Bilirubin 0.4, Conjugated Bilirubin 0.0, Indirect Bilirubin 0.6, Unconjugated Bilirubin 0.7, AST 70 H, ALT 80 H, Alkaline Phosphatase 73, Total Protein 7.6, Albumin 4.5, Amylase 58, Lipase 55 01/08/22 19:39: Lactate 1.6 01/08/22 21:30: Urine Color Yellow, Urine Appearance Clear, Urine pH 7.5, Ur Specific Scott 1.010, Urine Protein Negative, Urine Glucose (UA) Negative, Urine Ketones Negative, Urine Blood Negative, Urine Nitrate Negative, Urine Bilirubin Negative, Urine Urobilinogen 4.0, Ur Leukocyte Esterase Negative, Urine RBC None, Urine WBC Occasional, Ur Squamous Epith Cells 5-10, Urine Bacteria Trace Result diagrams: 01/08/22 19:39 01/08/22 19:39 Orders (Tests/Meds): ED MEDICATIONS Discontinued Medications Generic Name Dose Route Start Last Admin Trade Name Freq PRN Reason Stop Dose Admin Hydromorphone HCl 1 mg 01/08/22 21:28 01/08/22 21:33 Hydromorphone 2mg/Ml Syringe IV 01/08/22 21:29 1 mg ONCE ONE Administration Sodium Chloride 1,000 mls @ 999 mls/hr 01/08/22 19:45 01/08/22 19:38 Sod Chlor 0.9% 1000ml Bag IV 01/08/22 20:45 999 mls/hr .Q1H1M SATNAM Administration Iopamidol 75 ml 01/08/22 20:31 01/08/22 20:32 Iopamidol-370 (76%);100ml Bottle IV 01/08/22 20:32 75 ml ONCE ONE Administration Ketorolac Tromethamine 30 mg 01/08/22 19:31 01/08/22 19:38 Ketorolac 30mg/Ml Vial IV 01/08/22 19:32 30 mg ONCE ONE Administration Ondansetron HCl 4 mg 01/08/22 21:28 01/08/22 21:33 Ondansetron 4mg/2ml Vial IV 01/08/22 21:29 4 mg ONCE ONE Administration Sodium Chloride 10 ml 01/08/22 20:31 01/08/22 20:32 Sodium Chloride 0.9% 10ml Syr (Rad Only) IV 01/08/22 20:32 10 ml ONCE ONE Administration - CT Data CT Scan: Abdomen, Pelvis Time Received: 22:[address] Reviewed: Yes: I have viewed the radiologist's interpretation Preliminary Findings: Normal/NAD (no bleed or acute abn) Medical Decision Narrative: recheck if needed and ca
[2022-01-08 21:35] LABS: Microscopic, Urine URINE MICROSCOPIC (MICROSCOPIC)
[2022-01-08 21:39] LABS: Appearance,Urine CLEAR (Clear); Bilirubin,Urine Negative (Negative); Blood, Urine Negative (Negative); Color,Urine YELLOW (Yellow); Glucose,Urine (UA) Negative (Negative); Ketones,Urine Negative (Negative); Leukocyte Esterase,Urine Negative (Negative); Nitrate,Urine Negative (Negative); PH,Urine 7.5 (5.0-8.5); Protein,Urine Negative (Negative)
[2022-01-08 21:45] LABS: Bacteria,Urine Trace /lpf; WBC,Urine Occasional #/hpf (0-3)
[2022-01-08 22:45] VITALS: BP 150/60; PULSE 73; RESP 18; TEMP 36.7; O2SAT 95
== END 2022-01-08 22:54 | disposition home or self-care (01) ==
PROVIDERS: Emergency Provider Emergency Medicine; PCP Internal Medicine Adolescent Medicine
DX: R10.31 Right lower quadrant pain (principal); R11.0 Nausea; I25.10 Atherosclerotic heart disease of native coronary artery without angina pectoris; K21.9 Gastro-esophageal reflux disease without esophagitis; I10 Essential (primary) hypertension; E78.5 Hyperlipidemia, unspecified; I25.2 Old myocardial infarction; Z79.899 Other long term (current) drug therapy
CPT/HCPCS: 74177; 80048; 80076; 81001; 82150; 83605; 83690; 85025; 96365; 96375; 99284; J2405; Q9967

== ENCOUNTER → 2022-02-27 14:05 | Outpatient (CLI) | payer BC, SELFPAY ==
--- NOTE | 2022-02-27 14:08 | CA_ITS ---
FINAL REPORT TECHNIQUE: Color Doppler, duplex Doppler and compression sonography of the left lower extremity deep venous systems was performed. CLINICAL HISTORY: pain in left lower leg SINCE SAT, numbness in left lower leg SINCE SAT,PT ON PLAVIX AND ASA FINDINGS: Probable thrombus seen in the proximal popliteal vein. Other deep veins are patent. IMPRESSION: Findings consistent with deep venous thrombosis involving the popliteal vein. Preliminary findings were called to Hui Fraser APRN by the copy technician at the time of the exam. Reviewed, Interpreted and Dictated by Mook Mancia III, MD Transcribed by Octavia Waterman Authenticated by Mook Mancia III, MD on 02/27/2022 04:38:06 PM [facility]
== END ==
LOC: RT 14:06
PROVIDERS: PCP Internal Medicine Adolescent Medicine; Visit Provider Nurse Practitioner Family
DX: M79.605 Pain in left leg (principal); R20.0 Anesthesia of skin
CPT/HCPCS: 93971

== ENCOUNTER → 2022-02-28 14:30 | Outpatient (CLI) | payer BC, SELFPAY ==
[2022-02-28 15:01] LABS: Basophils # 0.2 K/mm3 (0-0.2); Basophils % 2.3 % (0.1-2.0); Eosinophils # 0.3 K/mm3 (0.0-0.4); Eosinophils % 2.9 % (0.1-12.0); Hematocrit 42.5 % (42.0-52.0); Hemoglobin 14.2 g/dL (14.1-18.0); Lymphocytes # 2.7 K/mm3 (0.7-4.5); Mean Corpuscular HGB Conc 33.5 g/dL (31.8-35.4); Mean Corpuscular Hemoglobin 33.5 pg (27.0-31.2); Mean Corpuscular Volume 100.1 fl (80-94); Mean Platelet Volume 7.9 fl (7.4-10.4); Monocytes # 0.7 K/mm3 (0.1-1.0); Monocytes % 7.6 % (1.7-9.3); Neutrophils % 56.2 % (37.0-80.0); Platelet Count 262 K/mm3 (142-424); Red Blood Count 4.24 M/mm3 (4.60-6.20); Red Cell Distribution Width 14.1 % (11.5-17.5); White Blood Count 8.8 K/mm3 (4.8-10.8)
[2022-02-28 16:39] LABS: Anion Gap 15.5 mEq/L (5-15); Blood Urea Nitrogen 18 mg/dl (9-20); Calcium 9.1 mg/dl (8.4-10.2); Carbon Dioxide 28 mmol/L (22.0-30.0); Chloride 100 mmol/L (98-107); Estimated Glomerular Filt Rate 88 ml/min (>60); GFR (African American) 106 ML/MIN (>60); Glucose 79 mg/dl (74-100); Potassium 3.5 mmoL/L (3.5-5.1); Sodium 140 mmol/L (136-145)
[2022-02-28 17:47] LABS: Vitamin B12 350 pg/mL (239-931)
[2022-02-28 17:48] LABS: Folate > 20.00 ng/mL
[2022-03-13 08:21] LABS: Vitamin B1 134.9 nmol/L (66.5-200.0)
== END ==
LOC: LAB 14:31
PROVIDERS: Visit Provider Nurse Practitioner Family
DX: Z72.89 Other problems related to lifestyle (principal); I25.10 Atherosclerotic heart disease of native coronary artery without angina pectoris; I73.9 Peripheral vascular disease, unspecified; I82.432 Acute embolism and thrombosis of left popliteal vein
CPT/HCPCS: 36415; 80048; 82607; 82746; 84425; 85025

== ENCOUNTER → 2022-03-03 13:28 | Outpatient (CLI) | payer BC, SELFPAY ==
--- NOTE | 2022-03-03 13:28 | CT_ITS ---
FINAL REPORT TECHNIQUE: Post contrast axial imaging of the aorta and bilateral lower extremity was obtained and reviewed. This study was performed with techniques to keep radiation doses as low as reasonably achievable (ALARA). Individualized dose reduction techniques using automated exposure control or adjustment of mA and/or kV according to the patient''s size were employed. CLINICAL HISTORY: numbness in LLE COMPARISON: 01/08/2022 FINDINGS: The lung bases are clear. Liver is homogeneous. Gallbladder is present. Spleen, pancreas, adrenal glands and kidneys are unremarkable. Scattered diverticula are seen of the sigmoid colon. There is an abdominal aortic endograft which excludes a 4.8 x 3.8 cm abdominal aortic aneurysm, unchanged from prior exam. There is ectasia of the right common iliac artery measuring up to 2.0 cm with endo graft. On sagittal imaging, the celiac axis is patent. There is a stent in the proximal SMA . Stents are also seen in the bilateral renal arteries. Right: There is extensive vascular calcification of the right common femoral artery and throughout the superficial femoral artery. There appears to be high-grade stenosis within the proximal right SFA of approximately 80%, best seen on image 241 of series 6. There is also high-grade stenosis in the distal right SFA of 90% seen on images 279-282. There is mild ectasia of the popliteal artery measuring up to 1.2 cm. Two vessel runoff is seen to the foot via the posterior tibial and peroneal arteries. Left: There is complete occlusion of the left common femoral artery and left superficial femoral artery. There is collateral reconstitution of the left profundal femoral artery and distal left SFA. 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 The popliteal artery continues with patent trifurcation. There is 2 vessel runoff via the posterior tibial and peroneal arteries. IMPRESSION: Abdominal aortic endograft with excluded aneurysm, stable. Complete occlusion of the left common femoral and superficial femoral arteries with distal reconstitution of the left superficial femoral artery. 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 High-grade stenosis of the proximal and distal right SFA. Two vessel runoff seen bilaterally. Reviewed, Interpreted and Dictated by Corey Guerin MD Transcribed by Avis White Authenticated by Corey Guerin MD on 03/03/2022 04:03:03 PM [facility]
== END ==
LOC: RAD 13:28
PROVIDERS: PCP Internal Medicine Adolescent Medicine; Visit Provider Nurse Practitioner Family
DX: M79.605 Pain in left leg (principal); R20.0 Anesthesia of skin
CPT/HCPCS: 75635; Q9967

== ENCOUNTER → 2022-03-30 13:12 | Outpatient (CLI) | payer BC, SELFPAY ==
--- NOTE | 2022-03-30 13:15 | MR_ITS ---
FINAL REPORT CLINICAL HISTORY: ACUTE LLB PAIN WITH LEFT SIDED SCIATICA NUMBNESS IN BOTH LEGS LEF WORSE PAIN UP BACK X 5 WEEKS NO RECENT TRAUMA OR INJURY COMPARISON: 11/09/2020 FINDINGS: Multiplanar MR imaging of the lumbar spine was performed without contrast. There is magnetic ability artifact secondary to an aortic stent graft which obscures much of the detail. On the sagittal T2-weighted images, disc degeneration is seen throughout the lumbar spine. The vertebral alignment is normal. There is no evidence of fracture. No bony mass is identified. The conus has an unremarkable appearance. L1-2: An annular bulge is present.There is no significant canal stenosis or neural foraminal narrowing. L2-3: An annular bulge is present. There is a left foraminal disc protrusion. There is mild right and moderate left neural foraminal narrowing. There is no significant canal stenosis. L3-4: There is an annular disc bulge with facet arthropathy and vertebral osteophytes. There is moderate bilateral neural foraminal narrowing. Mild central canal stenosis with an AP diameter of the thecal sac of 9 mm. L4-5: There is an annular disc bulge with facet arthropathy. There is mild right and moderate left neural foraminal narrowing. No significant canal stenosis. L5-S1: An annular bulge is present. Neural foramen are skin obscured IMPRESSION: Multilevel degenerative disc disease and spondylosis as described. Overall, appearance is similar to the prior exam. Reviewed, Interpreted and Dictated by Mook Mancia III, MD Transcribed by Fariha Gomez Authenticated and [facility]
== END ==
LOC: RAD 13:12
PROVIDERS: PCP Internal Medicine Adolescent Medicine; Visit Provider Internal Medicine Adolescent Medicine
DX: M54.42 Lumbago with sciatica, left side (principal); M79.2 Neuralgia and neuritis, unspecified
CPT/HCPCS: 72148; 76376

== ENCOUNTER → 2022-04-17 15:48 | Outpatient (CLI) | payer BC, SELFPAY ==
[2022-04-17 16:49] LABS: Basophils # 0.2 K/mm3 (0-0.2); Eosinophils # 0.3 K/mm3 (0.0-0.4); Eosinophils % 3.4 % (0.1-12.0); Hematocrit 39.2 % (42.0-52.0); Hemoglobin 13.2 g/dL (14.1-18.0); Lymphocytes # 2.4 K/mm3 (0.7-4.5); Lymphocytes % 32.9 % (10-50); Mean Corpuscular HGB Conc 33.6 g/dL (31.8-35.4); Mean Corpuscular Hemoglobin 33.5 pg (27.0-31.2); Mean Corpuscular Volume 99.8 fl (80-94); Mean Platelet Volume 7.3 fl (7.4-10.4); Monocytes # 0.5 K/mm3 (0.1-1.0); Monocytes % 6.3 % (1.7-9.3); Neutrophils % 54.3 % (37.0-80.0); Platelet Count 223 K/mm3 (142-424); Red Blood Count 3.92 M/mm3 (4.60-6.20); Red Cell Distribution Width 13.4 % (11.5-17.5); White Blood Count 7.3 K/mm3 (4.8-10.8)
[2022-04-17 16:57] LABS: Chloride 105 mmol/L (98-107); Potassium 3.7 mmoL/L (3.5-5.1); Sodium 142 mmol/L (136-145)
[2022-04-17 17:00] LABS: Anion Gap 13.7 mEq/L (5-15); Blood Urea Nitrogen 21 mg/dl (9-20); Carbon Dioxide 27 mmol/L (22.0-30.0); Estimated Glomerular Filt Rate 63 ml/min (>60); GFR (African American) 76 ML/MIN (>60)
[2022-04-17 17:01] LABS: Calcium 9.1 mg/dl (8.4-10.2); Glucose 95 mg/dl (74-100)
== END ==
PROVIDERS: PCP Internal Medicine Adolescent Medicine; Visit Provider Nurse Practitioner Family
DX: Z01.812 Encounter for preprocedural laboratory examination (principal); Z20.822 Contact with and (suspected) exposure to COVID-19; I73.9 Peripheral vascular disease, unspecified
CPT/HCPCS: 36415; 80048; 85025; C9803; U0003; U0005

== ENCOUNTER 2022-04-18 08:05 | Day surgery (SDC) | payer BC, SELFPAY ==
[2022-04-18] VITALS (12 sets, daily range): BP systolic 104–159; BP diastolic 55–91; PULSE 60–75; RESP 18–20; TEMP 36.9; O2SAT 90–98; BMI 37.3
--- NOTE | 2022-04-18 07:03 | IR_ITS ---
APPROVED REPORT Patient Location: Outpatient PROCEDURES Right radial arterial access Catheter placement in the left common iliac artery Left common iliac artery antegrade angiogram with unilateral runoff to the left foot Angioplasty to the left superficial femoral artery Angioplasty to the left common femoral artery INDICATION Terral claudication class IV, Occluded left common femoral artery, Occluded left superficial femoral artery, Severe peripheral artery disease with intolerable claudication Informed consent was obtained prior to the procedure. COMPLICATIONS NONE Estimated Blood Loss: LESS THAN 10 ML TECHNIQUE 1% lidocaine used anesthetize the right anterior aspect of the right wrist. The right radial artery was accessed via the Salinger technique and a 6 [place] hydrophilic sheath was placed in the right radial artery. An arterial cocktail using nitroglycerin verapamil lidocaine and heparin were administered. A PV multi curve catheter was then used to traverse the brachiocephalic transverse aorta and then placed into the descending aorta. The catheter was advanced with the wire into the left common iliac artery. Following this intake. Angiography was performed. Therapeutic heparin was administered and the short sheath was exchanged for a 119 cm hydrophilic destination sheath. An advantage wire was then used to traverse the occluded left common femoral artery as well as the occluded left superficial femoral artery. The wire then popped through the distal occlusion into the popliteal artery. Multiple 6 mm and 7 mm balloons were used to dilate the left common femoral artery as well as the left superficial femoral artery. Due to the patient's tall stature the 200 cm balloon simply would not reach at Nicanor's canal to open the calcified chronic occlusion. Nevertheless multiple balloons were used throughout the left superficial femoral artery and left common femoral artery. At the end of the procedure there was slight improved flow into the left common femoral artery. At the end of the procedure the apparatus was removed the sheath was removed and hemostasis was achieved using TR banding patient was transferred the postop putting in stable condition ANGIOGRAPHIC RESULTS Distal abdominal aorta has a large aneurysm with an endovascular stent graft Bilateral common iliac arteries are patent and have an endovascular stent graft which extend from the abdominal aortic aneurysm Left common iliac artery is patent Left internal and external iliac arteries are patent Left common femoral artery is occluded throughout its course Left profunda femoris artery is ostially occluded but does have a collateral from the internal iliac The ostial and proximal and mid superficial femoral artery are occluded. There is reconstitution at Nicanor's canal into the popliteal artery Left popliteal artery is patent with mild 30% atheromatous plaque. There is two-vessel runoff below the knee on the left side from the posterior tibialis artery and the peroneal artery IMPRESSION Peripheral artery disease as described above PLAN 1. Continue Xarelto and aspirin 2. Patient will be referred to vascular surgery at [facility] for femoral artery endarterectomy 3. If patient is deemed a nonsurgical candidate he will be brought back to the [facility] and will undergo right femoral artery access with plans to reconstruct the left femoral artery and left superficial femoral artery. I strongly believe patient will benefit from left femoral artery reconstruction with endarterectomy with antegrade cannulation of the profunda femoris artery 4. Aggressive risk factor modification 5. LDL less than 55 to be achiev
[2022-04-18 13:38] LABS: CATHL Activated Clotting Time 243 SEC (74-125)
== END 2022-04-18 15:59 | disposition home or self-care (01) ==
LOC: CATHLAB 08:06
PROVIDERS: PCP Internal Medicine Adolescent Medicine; Visit Provider Internal Medicine
DX: I70.213 Atherosclerosis of native arteries of extremities with intermittent claudication, bilateral legs (principal); I82.432 Acute embolism and thrombosis of left popliteal vein; I70.92 Chronic total occlusion of artery of the extremities; I25.10 Atherosclerotic heart disease of native coronary artery without angina pectoris; I71.4 Abdominal aortic aneurysm, without rupture; I65.23 Occlusion and stenosis of bilateral carotid arteries; I77.1 Stricture of artery; E78.5 Hyperlipidemia, unspecified; I10 Essential (primary) hypertension; Z79.01 Long term (current) use of anticoagulants; Z87.891 Personal history of nicotine dependence; Z79.899 Other long term (current) drug therapy
CPT/HCPCS: 37224; 85347; 99152; 99153; C1725; C1760; C1769; J1644; Q9966

== ENCOUNTER → 2022-06-26 12:40 | Outpatient (CLI) | payer BC, SELFPAY ==
--- NOTE | 2022-06-26 12:45 | CA_ITS ---
APPROVED REPORT EXAM: Comprehensive 2D, Doppler, and color-flow Echocardiogram Sticker On: Jessica Stout CRT Ht: 6 ft 3 in Wt: 298lbs BSA: 2.60 BP: 122/65 mmHg Indications: CAD, HX CVA, AAA, STENTS L LEG 2D Dimensions LVOT 2.21 cm (M/F) 1.5-2.5 LA Volume 30.10 mL LA Volume Index 11.60 mL/m2 (M/F) 16-34 M-Mode Dimensions RVDd 2.96 cm (0.9-2.6) LA Diam 4.54 cm (1.9-4.0) LVDd 4.78 cm (3.5-5.7) Ao Diam 4.22 cm (2.0-3.7) LVDs 2.96 cm (3.5-5.7) IVSd 2.43 cm (0.6-1.1) PWd 1.33 cm (0.6-1.1) EF (Teich) 68.20% FS 38.10% EDV (Teich) 106.50 mL TAPSE 2.68 (<1.7) ESV (Teich) 33.90 mL LV Diastology E Decel Time 307.00 (160-240 msec) E/A Ratio 0.78 MED E' 4.70 (< 7 cm/sec) MED A' 8.90 cm/s E'/MED E' Ratio 15.23 (>14) LAT E' 7.10 (<10 cm/sec) LAT A' 11.00 cm/s E/LAT E' Ratio 10.08 (>14) Aortic Valve AO Peak GR. 9.40 mmHg Mitral Valve MV A Velocity 92.00 (40-130 cm/s) E/A Ratio 0.78 MV Decel. Time 307.00 (160-240 ms) Pulmonary Valve PV Peak Velocity 112.00 (50-150 cm/s) Tricuspid Valve TR P. Velocity 201.00 cm/s RAP Estimate 10.00 mmHg RVSP 26.20 mmHg Left Ventricle Left atrium is mildly enlarged, left ventricle is normal size mild concentric left ventricular hypertrophy, estimated ejection fraction 55% with no regional wall motion abnormality, grade 1 diastolic dysfunction seen without tissue Doppler evidence of raise left atrial pressure. Right Ventricle Right atrium and right ventricle are normal size and contractility. Aortic Valve Aortic valve is minimally thickened and fibrosed there is no aortic stenosis aortic insufficiency. Mitral Valve Mitral valve grossly normal, there is trace mitral regurgitation. Tricuspid Valve Tricuspid valve grossly normal, there is trace tricuspid regurgitation, tricuspid regurgitation jet velocity is inadequate for calculation of the right ventricular systolic pressure. Pulmonic Valve Pulmonic valve is poorly visualized. Great Vessels Aortic root is normal size. Inferior vena cava is poorly visualized. Pericardium No significant pericardial effusion noted. Conclusion 1. Mildly enlarged left atrium, normal left ventricular size, mild concentric left ventricular hypertrophy, estimated ejection fraction 55% with no regional wall motion abnormality, grade 1 diastolic dysfunction seen without tissue Doppler evidence of raise left atrial pressure. 2. Trace mitral and tricuspid regurgitation. 3. No significant pericardial effusion noted 4. Inferior vena cava is poorly visualized. Electronically signed by : Gregory Cruz MD 06/26/2022 20:34:58
== END ==
PROVIDERS: PCP Internal Medicine Adolescent Medicine; Visit Provider Nurse Practitioner
DX: I63.9 Cerebral infarction, unspecified (principal)
CPT/HCPCS: 93306

== ENCOUNTER → 2023-01-12 12:30 | Outpatient (CLI) | payer BC, SELFPAY ==
--- NOTE | 2023-01-12 12:36 | XR_ITS ---
FINAL REPORT CLINICAL HISTORY: LT FOOT PAIN, swelling, heard pop 2 night ago. COMPARISON: none FINDINGS: LEFT FOOT Three views of the left foot demonstrate a comminuted fracture of the 2nd metatarsal diaphysis. There is 2 mm lateral displacement. Mild degenerative change is noted. There is a small plantar calcaneal spur. The soft tissues are unremarkable. IMPRESSION: Second metatarsal diaphysis fracture as above. Reviewed, Interpreted and Dictated by Mook Mancia III, MD Transcribed by Kami Hall Authenticated and [facility]
== END ==
LOC: RAD 12:30
PROVIDERS: PCP Internal Medicine Adolescent Medicine; Visit Provider Nurse Practitioner Family
DX: M79.672 Pain in left foot (principal)
CPT/HCPCS: 73630

== ENCOUNTER → 2023-01-15 09:03 | Outpatient (CLI) | payer BC, SELFPAY ==
[2023-01-15 09:57] LABS: Alanine Aminotransferase 42 U/L (12-78); Albumin Level 4.5 g/dl (3.5-5.0); Albumin/Globulin Ratio 1.6 (1.1-1.8); Alkaline Phosphatase 62 U/L (38-126); Anion Gap 14.1 mEq/L (5-15); Aspartate Amino Transferase 46 U/L (17-59); Bilirubin,Total 0.8 mg/dl (0.2-1.3); Blood Urea Nitrogen 16 mg/dl (9-20); Calcium 8.6 mg/dl (8.4-10.2); Carbon Dioxide 27 mmol/L (22.0-30.0); Chloride 102 mmol/L (98-107); Estimated Glomerular Filt Rate 77 ml/min (>60); GFR (African American) 94 ML/MIN (>60); Globulin 2.8 g/dL (1.3-3.2); Glucose 102 mg/dl (74-100); Potassium 4.1 mmoL/L (3.5-5.1); Sodium 139 mmol/L (136-145); Total Protein,Serum 7.3 g/dl (6.3-8.2)
[2023-01-24 01:08] LABS: 1,25 Dihydroxy Vitamin D 49 pg/mL (.); 1,25-Dihydroxy, Vitamin D-2 <10 pg/mL (.); 1,25-Dihydroxy, Vitamin D-3 46 pg/mL (.)
== END ==
PROVIDERS: PCP Internal Medicine Adolescent Medicine; Visit Provider Podiatrist
DX: M79.672 Pain in left foot (principal); S92.322A Displaced fracture of second metatarsal bone, left foot, initial encounter for closed fracture; E66.9 Obesity, unspecified; Z68.37 Body mass index [BMI] 37.0-37.9, adult
CPT/HCPCS: 36415; 80053; 82652

== ENCOUNTER → 2023-02-18 17:09 | Outpatient (CLI) | payer BC, SELFPAY ==
--- NOTE | 2023-02-18 17:14 | XR_ITS ---
PROCEDURE INFORMATION: Exam: XR Left Foot Complete; Alignment Exam date and time: 02/18/2023 5:08 PM Age: 57 years old Clinical indication: Condition or disease; Other: F/u to left foot FX. ; Additional info: Fracture TECHNIQUE: Imaging protocol: Radiologic exam of the left foot. Views: 3 or more views. COMPARISON: CR XR FOOT LT MIN 3V 01/12/2023 12:40 PM FINDINGS: Bones/joints: Age-indeterminate, healing, minimally displaced 2nd metatarsal shaft fracture with exuberant callus formation. No dislocation. Soft tissues: Normal. IMPRESSION: Healing 2nd metatarsal shaft fracture.
== END ==
LOC: RAD 17:11
PROVIDERS: PCP Internal Medicine Adolescent Medicine; Visit Provider Podiatrist
DX: M79.672 Pain in left foot (principal); S92.322A Displaced fracture of second metatarsal bone, left foot, initial encounter for closed fracture
CPT/HCPCS: 73630

== ENCOUNTER → 2023-03-16 15:38 | Outpatient (CLI) | payer BC, SELFPAY ==
--- NOTE | 2023-03-16 15:49 | XR_ITS ---
FINAL REPORT CLINICAL HISTORY: foot pain, hx of foot fx, pt doesnt have feeling in toes due to a past femur sx, pt hit foot on object last week and has had pain and swelling since on the lateral dorsal aspect of his foot COMPARISON: 02/18/2023 FINDINGS: Left foot Three views were obtained. There is no acute fracture or dislocation. There is a chronic fracture of the mid 2nd metatarsal. There is increased callus formation since the prior. There are mild degenerative changes of the great toe. Small calcaneal spurs are identified. IMPRESSION: Chronic fracture of the mid 2nd metatarsal with increased callus formation. Degenerative changes of the great toe. Reviewed, Interpreted and Dictated by Mook Mancia III, MD Transcribed by Swapna Humphries Authenticated and [facility]
== END ==
LOC: RAD 15:39
PROVIDERS: PCP Internal Medicine Adolescent Medicine; Visit Provider Podiatrist
DX: M79.672 Pain in left foot (principal); S92.322D Displaced fracture of second metatarsal bone, left foot, subsequent encounter for fracture with routine healing
CPT/HCPCS: 73630

== ENCOUNTER → 2023-04-09 09:43 | Outpatient (CLI) | payer BC, SELFPAY ==
--- NOTE | 2023-04-09 09:46 | XR_ITS ---
FINAL REPORT CLINICAL HISTORY: lt foot pain, follow up fx COMPARISON: 03/16/2023 FINDINGS: LEFT FOOT: Three views of the left foot were obtained. Chronic fracture of the 2nd metatarsal diaphysis is visually stable. No new abnormality. Small calcaneal spurs are noted. Forefoot soft tissue swelling is present. IMPRESSION: Visually stable 2nd metatarsal fracture. Reviewed, Interpreted and Dictated by Mook Mancia III, MD Transcribed by Kami Hall Authenticated and [facility]
== END ==
LOC: RAD 09:44
PROVIDERS: PCP Internal Medicine Adolescent Medicine; Visit Provider Podiatrist
DX: M79.672 Pain in left foot (principal); S92.322A Displaced fracture of second metatarsal bone, left foot, initial encounter for closed fracture
CPT/HCPCS: 73630

== ENCOUNTER → 2023-06-11 10:59 | Outpatient (CLI) | payer BC, SELFPAY ==
--- NOTE | 2023-06-11 11:03 | CT_ITS ---
FINAL REPORT CLINICAL HISTORY: ABDOMINAL PAIN COMPARISON: 01/08/2022 FINDINGS: CT OF THE ABDOMEN AND PELVIS WITH CONTRAST Axial CT images of the abdomen and pelvis were obtained after the administration of oral and iv contrast. Coronal reformatted images were also obtained and reviewed.This study was performed with techniques to keep radiation doses as low as reasonably achievable (ALARA). Individualized dose reduction techniques using automated exposure control or adjustment of mA and/or kV according to the patient's size were employed. Abdomen: The lung bases are clear. Aortic stent graft is again seen, patent. There is mild fatty infiltration of the liver. There is a less than 1 cm cyst in the left hepatic lobe, stable. The spleen is unremarkable. No adrenal mass is present. The pancreas has an unremarkable appearance. The kidneys are normal, without evidence of mass or hydronephrosis. The aorta is normal in caliber. There is no free fluid or adenopathy. No mass or abnormal fluid collection is seen. Stents are again noted in the SMA and bilateral renal arteries. Pelvis: The appendix is normal. There is a right inguinal hernia containing fat. The urinary bladder is unremarkable. No inflammatory process is seen. There is no evidence of mass or adenopathy. There is no evidence of bowel obstruction. IMPRESSION: Mild fatty infiltration of the liver. Less than 1 cm left hepatic lobe cyst, stable. Reviewed, Interpreted and Dictated by Mook Mancia III, MD Transcribed by Kami Hall Authenticated and [facility]
[2023-06-11 11:44] LABS: Blood Urea Nitrogen 17 mg/dl (9-20); Estimated Glomerular Filt Rate 62 ml/min (>60); GFR (African American) 76 ML/MIN (>60)
[2023-06-11 12:10] LABS: Basophils % 0.3 % (0.1-2.0); Eosinophils # 0.2 K/mm3 (0.0-0.4); Eosinophils % 2.3 % (0.1-12.0); Hematocrit 37.9 % (42.0-52.0); Hemoglobin 12.8 g/dL (14.1-18.0); Lymphocytes # 2.3 K/mm3 (0.7-4.5); Lymphocytes % 32.2 % (10-50); Mean Corpuscular HGB Conc 33.7 g/dL (31.8-35.4); Mean Corpuscular Hemoglobin 33.9 pg (27.0-31.2); Mean Corpuscular Volume 100.8 fl (80-94); Mean Platelet Volume 6.9 fl (7.4-10.4); Monocytes # 0.5 K/mm3 (0.1-1.0); Monocytes % 7.3 % (1.7-9.3); Neutrophils # 4.2 K/mm3 (1.8-7.8); Neutrophils % 57.9 % (37.0-80.0); Platelet Count 213 K/mm3 (142-424); Red Blood Count 3.76 M/mm3 (4.60-6.20); Red Cell Distribution Width 13.8 % (11.5-17.5); White Blood Count 7.2 K/mm3 (4.8-10.8)
== END ==
PROVIDERS: PCP Internal Medicine Adolescent Medicine; Visit Provider Internal Medicine Adolescent Medicine
DX: R10.13 Epigastric pain (principal); K92.2 Gastrointestinal hemorrhage, unspecified; I73.9 Peripheral vascular disease, unspecified
CPT/HCPCS: 36415; 74177; 82565; 84520; 85025; Q9967

== ENCOUNTER 2024-04-05 10:00 | Outpatient (CLI) | payer BC, SELFPAY ==
--- NOTE | 2024-04-05 10:25 | XR_ITS ---
PROCEDURE INFORMATION: Exam: XR Left Foot Complete; Alignment Exam date and time: 04/05/2024 10:26 AM Age: 59 years old Clinical indication: Pain; Foot; Left; Additional info: Foot pain TECHNIQUE: Imaging protocol: Radiologic exam of the left foot. Views: 3 or more views. COMPARISON: CR XR FOOT WT BEARING LT 3V 04/09/2023 9:47 AM FINDINGS: Bones/joints: Continued deformity from remote fracture within the mid shaft 2nd metatarsal bone. No acute fracture or dislocation. Soft tissues: Normal. IMPRESSION: Continued deformity from remote fracture within the mid shaft 2nd metatarsal bone.
== END 2024-04-05 23:59 | disposition home or self-care (01) ==
LOC: RAD 10:02
PROVIDERS: PCP Internal Medicine Adolescent Medicine; Visit Provider Podiatrist
DX: M79.672 Pain in left foot (principal)
CPT/HCPCS: 73630

== ENCOUNTER 2024-05-22 07:32 | Outpatient (CLI) | payer BC, SELFPAY ==
--- NOTE | 2024-05-22 07:33 | CA_ITS ---
FINAL REPORT CLINICAL HISTORY: b/l LE edema, PAD,HX DVT LLE,PT ON XARELTO,HX LT POPLITEAL ART ANEURYSM COMPARISON: None FINDINGS: Multiple transverse and longitudinal scans were performed of the femoral popliteal deep venous system, with augmentation and compression maneuvers. Normal phasic flow was noted in the visualized deep venous system. No intraluminal increased echogenicity is noted to suggest thrombus. There is normal compression and augmentation of the venous structures. No abnormal venous collaterals are seen. IMPRESSION: No evidence of deep venous thrombosis of the bilateral lower extremities. Reviewed, Interpreted and Dictated by Abdi Jeffries MD Transcribed by Kami Hall Authenticated and [facility]
--- NOTE | 2024-05-22 07:33 | US_ITS ---
FINAL REPORT CLINICAL HISTORY: b/l LE edema, PAD known Left popliteal artery aneurysm, H/o LE arterial surgeries :Left femoral reconstruction with endartectomy, Aorta graft Biltaeral iliac grafts COMPARISON: None FINDINGS: LOWER EXTREMITY SEGMENTAL PRESSURE MEASUREMENTS FINDINGS: Pressure indices are as follows: RIGHT LOWER EXTREMITY: Thigh: 0.76 Calf: 0.54 Ankle, posterior tibial artery: 0.64 Ankle, dorsalis pedis: 0.66 Toe: 0.38 Comments: Moderate disease LEFT LOWER EXTREMITY: Thigh: 0.92 Calf: 0.69 Ankle, posterior tibial artery: 0.80 Ankle, dorsalis pedis: 0.50 Toe: 0.41 Comments: Moderate disease IMPRESSION: Findings suggesting moderate bilateral peripheral vascular disease. Consider CTA. Reviewed, Interpreted and Dictated by Abdi Jeffries MD Transcribed by Kami Hall Authenticated and [facility]
== END 2024-05-22 23:59 | disposition home or self-care (01) ==
LOC: RT 07:33
PROVIDERS: PCP Internal Medicine Adolescent Medicine; Visit Provider Podiatrist
DX: R60.0 Localized edema (principal); I73.9 Peripheral vascular disease, unspecified
CPT/HCPCS: 93923; 93970

== ENCOUNTER 2025-01-07 14:51 | Outpatient (CLI) | payer BC, SELFPAY ==
--- NOTE | 2025-01-07 14:55 | XR_ITS ---
FINAL REPORT TECHNIQUE: Right knee 3 views CLINICAL HISTORY: PAIN..no truama COMPARISON: None FINDINGS: RIGHT KNEE: 3 images of the right knee were obtained. There is no evidence of fracture or dislocation. The joint spaces are intact. There is no soft tissue abnormality identified. IMPRESSION: No acute bony abnormality. Reviewed, Interpreted and Dictated by Corey Guerin MD Transcribed by Lucy Hester Authenticated and [facility]
== END 2025-01-07 23:59 | disposition home or self-care (01) ==
LOC: RAD 14:52
PROVIDERS: PCP Internal Medicine Adolescent Medicine; Visit Provider Nurse Practitioner Family
DX: M25.561 Pain in right knee (principal)
CPT/HCPCS: 73562

== ENCOUNTER 2025-03-10 12:58 | Outpatient (CLI) | payer BC, SELFPAY ==
--- NOTE | 2025-03-10 13:02 | XR_ITS ---
FINAL REPORT CLINICAL HISTORY: thumb pain FINDINGS: RIGHT HAND Three views demonstrate no acute fracture or dislocation. 2 presumed surgical clips measuring 4 mm each are seen at the palmar aspect of the hand at the level of the fourth metacarpal. The visualized joint spaces are normally aligned. The soft tissues are unremarkable. IMPRESSION: No acute bony abnormality. Reviewed, Interpreted and Dictated by Corey Guerin MD Transcribed by Avis White Authenticated and [facility]
--- NOTE | 2025-03-10 13:02 | XR_ITS ---
FINAL REPORT CLINICAL HISTORY: pain worse the last day FINDINGS: RIGHT KNEE 3 views of the right knee were obtained. There is no acute fracture or dislocation. Visualized joint spaces are normally aligned. Soft tissues are unremarkable. IMPRESSION: No acute bony abnormality. Reviewed, Interpreted and Dictated by Corey Guerin MD Transcribed by Avis White Authenticated and [facility]
--- NOTE | 2025-03-10 13:16 | XR_ITS ---
FINAL REPORT CLINICAL HISTORY: INJURY TO THUMB FINDINGS: LEFT HAND Three views demonstrate no acute fracture or dislocation. There are moderate hypertrophic changes of osteoarthritis. The visualized joint spaces are normally aligned. The soft tissues are unremarkable. IMPRESSION: No acute process. Reviewed, Interpreted and Dictated by Corey Guerin MD Transcribed by Avis White Authenticated and [facility]
== END 2025-03-10 23:59 | disposition home or self-care (01) ==
LOC: RAD 12:59
PROVIDERS: PCP Internal Medicine Adolescent Medicine; Visit Provider Internal Medicine Adolescent Medicine
DX: M25.561 Pain in right knee (principal); M18.12 Unilateral primary osteoarthritis of first carpometacarpal joint, left hand; M79.641 Pain in right hand
CPT/HCPCS: 73130; 73562